=== PATIENT | female | born 1940 | race Caucasian/White ===

== ENCOUNTER 2016-07-21 16:23 | Inpatient (IN) | payer MEDICARE, OTHER ==
[~2016-07-21] VITALS: Ht 167.6 cm; Wt 106.3 kg
[2016-07-21] MEDS: Vancomycin Dose per Pharmacist XX SCH (07:21)
[~2016-07-21 16:23] MED LIST: ALBU90AE IH; AMLO10TA3 PO; ASPI325T32 PO; ATEN50TA PO; CYAN50008 PO; DONE10TA42 PO; FLUT250D2 IH; Ferrous Gluconate PO; GABA-502 PO; HYDR50TA3 PO; LAMO100T PO; LEVO100T6 PO; MV-M1CAP15 PO; OMEP40CA36 PO; ONDA-54 PO; OXYB5TAB10 PO; OXYC5TAB72 PO; VENL150C98 PO
[2016-07-21 16:28] VITALS: BP 127/74; PULSE 92; RESP 24; O2SAT 94
[2016-07-21] MEDS ORDERED: 0.9% Sodium Chloride 1,000 ML IV ONE (16:35)
--- NOTE | 2016-07-21 16:48 | ED.REPORT ---
HPI-Fever Date of Service Jul 21, 2016 ED Provider: Ling Jimenez MD This is a 75 year old female with a history of uterine cancer s/p hysterectomy and oophorectomy presenting to the emergency department complaining of general malaise that began 2 weeks ago. Associated symptoms include malaise, fever, shortness of breath, wheezing, nausea, non-productive cough, and diarrhea. Diarrhea is now resolved after taking Imodium. Denies vomiting, chest pain, lower extremity swelling, abdominal pain, dysuria, hematuria, or recent antibiotics. Oncologist: Dr. Arzate, pt visits the infusion center daily. Nursing Notes Stated Complaint: COUGH, FATIGUE,FEVER Chief Complaint: General Complaint Nursing Notes Reviewed: Yes Allergies: Coded Allergies: Quinolones (Verified Allergy, Mild, 07/21/16) lisinopril (Verified Allergy, Unknown, 07/21/16) morphine (Verified Allergy, Unknown, 07/21/16) Scheduled Amlodipine (Amlodipine) 10 Mg Tablet 10 MG PO DAILY Aspirin (Aspirin) 325 Mg Tablet 325 MG PO DAILY Atenolol (Atenolol) 50 Mg Tablet 50 MG PO DAILY Calcium Carbonate/Vitamin D3 (Calcium + Vitamin D Tablet) 1 Each Tablet 1 EACH PO DAILY Cholecalciferol (Vitamin D3) (Vitamin D3) 2,000 Unit Capsule 2,000 UNIT PO DAILY Cyanocobalamin (Vitamin B-12) (Vitamin B12) 5,000 Mcg Tab.rapdis 5,000 MCG PO DAILY Donepezil (Donepezil) 10 Mg Tablet 10 MG PO HS Ferrous Gluconate (Ferrous Gluconate) 324 Mg Tablet 162 MG PO BID Gabapentin (Gabapentin) 300 Mg Capsule 300 MG PO BID Hydrochlorothiazide (Hydrochlorothiazide) 25 Mg Tablet 25 MG PO DAILY Lamotrigine (Lamictal) 100 Mg Tablet 200 MG PO DAILY Levothyroxine (Levothyroxine) 100 Mcg Tablet 100 MCG PO DAILY Mv-Mn/FA/Vit K/Lycop/Lut/Coq10 (Daily Multivitamin Capsule) 200-100MCG Capsule 1 EACH PO DAILY Omeprazole (Omeprazole) 20 Mg Capsule.dr 40 MG PO DAILY Oxybutynin Chloride (Oxybutynin Chloride) 5 Mg Tablet 5 MG PO BID Venlafaxine ER (Venlafaxine ER) 150 Mg Cap.er.24h 300 MG PO DAILY Scheduled PRN Acetaminophen (Acetaminophen) 325 Mg Capsule 325 MG PO Q4H PRN PRN For Pain Albuterol Neb Soln (Albuterol Neb Soln) 2.5 Mg/3 Ml Vial.neb 2.5 MG INHALATION Q4H PRN PRN asthma Fluticasone Propionate (Flovent Diskus) 250 Mcg Disk.w.dev 2 PUFF IH BID PRN PRN For Shortness of Breath General Time Seen by MD: 16:45 Chief Complaint Fever currently Hx Obtained From: Patient Arrived By: Walk-in Onset Occurred: More than a week ago... (2 weeks) Symptom Duration: Since onset Severity: Current: No pain currently Pertinent Negative: Pt denies other symptoms Recent Healthcare: Recent doctor visit Similar Sx Previous: No Past Medical History Past Medical History Notes: oncologist: Dr. Arzate Past Medical History Uterine cancer Past Surgical History Oophorectomy Reports: Hysterectomy Smoking History Never Smoker Ambulatory Status Independent Review of Systems Constitutional: Reports: Chills, Fever, Malaise Respiratory: Reports: Non-productive cough, Shortness of breath GI: Reports: Nausea, Denies: Abdominal pain, Diarrhea, Vomiting Female: Denies: Dysuria, Hematuria Neurologic: Denies: Headache Complete sys rev & neg: except as marked. Physical Exam Initial Vital Signs Vital Signs (First) Date Time Temp Pulse Resp B/P Pulse Ox O2 Delivery O2 Flow Rate FiO2 07/21/16 16:28 35.4 92 24 127/74 94 Room Air Initial VS: Reviewed Head / Eyes: Atraumatic, Normocephalic, PERRL ENT: Mucous membranes moist, Conjunctiva normal, No scleral icterus Abdomen / GI: Soft, Non-tender, No guarding, No rebound, No distention Extremities: Vascular intact, Neuro intact, No swelling, No tenderness Psychiatric: Mood/affect normal, Behavior normal, Normal thought content General/Constitutional: Awake, Alert Neck: Supple, No meningismus, Full range of motion, No adenopathy, No swelling , Non-tender, No masses Respiratory / Chest: Breath sounds NL, Breath sounds = bilat, No respiratory distress, No rales, No rhonchi, No wheezing, No retractions, No stridor Cardiovascular: Heart rate NL, Regular rhythm, Heart sounds NL, No murmurs, Peripheral circulation NL Skin: Color NL, No rash, Warm, Dry, Turgor NL, No swelling Neurologic: Oriented X3, Speech NL, No motor deficits, No sensory deficits Interpretation & Diagnostics Interpretation & Diagnostics: CHEST X-RAY IMPRESSION: 1. Findings consistent with medial right lower lobe pneumonia. 2. Moderate cardiomegaly as before. Dictated by: Raad Valdez M.D. on 07/21/2016 at 17:24 Approved by: Raad Valdez M.D. on 07/21/2016 at 17:[address] IMPRESSION: 1. No evidence for central pulmonary embolism. 2. Findings consistent with evolving bibasilar bronchopneumonia. 3. Large retrocardiac hiatal hernia. 4. Mild cardiomegaly. Dictated by: Raad Valdez M.D. on 07/21/2016 at 17:58 Approved by: Raad Valdez M.D. on 07/21/2016 at 18:07 Lab Results Interpretation Result Diagram: 07/21/16 1650 07/21/16 1650 Test 07/21/16 16:50 07/21/16 18:18 White Blood Count 4.3th/mm3 (3.8-10.1) Red Blood Count 3.42mil/mm3 (3.90-5.20) Hemoglobin 9.9g/dL (12.0-15.6) Hematocrit 29.3% (35.0-46.0) Mean Corpuscular Volume 85.7fL (81-100) Mean Corpuscular Hemoglobin 28.9pg (27.0-35.0) Mean Corpuscular Hemoglobin Concent 33.8% (32.0-37.0) Red Cell Distribution Width 16.7% (12.3-15.4) Platelet Count 184bil/L (150-400) Neutrophils (%) (Auto) 67.6% (40-74) Lymphocytes (%) (Auto) 12.9% (14-46) Monocytes (%) (Auto) 17.4% (4-12) Eosinophils (%) (Auto) 0% (0-5) Basophils (%) (Auto) 0.2% (0-3) Sodium Level 131mEq/L (134-144) Potassium Level 2.8mEq/L (3.5-5.2) Chloride Level 88mEq/L (97-108) Carbon Dioxide Level 22mmol/L (18-29) Blood Urea Nitrogen 19mg/dL (8-27) Creatinine 0.83mg/dL (0.57-1.00) Estimat Glomerular Filtration Rate 97mL/min (>59) Glucose Level 91mg/dL (60-99) Lactic Acid Level 1.6mmol/L (0.4-2.0) Calcium Level 8.3mg/dL (8.5-10.1) Magnesium Level 1.0mg/dL (1.6-2.6) Total Bilirubin 1.0mg/dL (0.0-1.2) Aspartate Amino Transf (AST/SGOT) 20U/L (0-50) Alanine Aminotransferase (ALT/SGPT) 21U/L (0-32) Alkaline Phosphatase 212U/L (25-165) Troponin T < 0.010ug/L (0.0-0.011) Total Protein 6.9g/dL (6.4-8.4) Albumin 3.7g/dL (3.4-5.0) Urine Color Yellow (YELLOW) Urine Appearance Hazy (CLEAR,HAZY) Urine pH 5.5 (5.0-8.0) Urine Specific [place] 1.010 (1.003-1.035) Urine Protein 30mg/dL (NEG,TRACE) Urine Glucose (UA) Negativemg/dL (NEGATIVE) Urine Ketones Negativemg/dL (NEGATIVE) Urine Occult Blood Trace (NEGATIVE) Urine Nitrite Negative (NEGATIVE) Urine Bilirubin Negative (NEGATIVE) Urine Urobilinogen Normalmg/dL (NORMAL) Urine Leukocyte Esterase Small (NEGATIVE) Urine RBC 0-2/hpf (0-2) Urine WBC 0-5/hpf (0-5) Urine Epithelial Cells Few/hpf (NONE-MOD) Urine Crystals None seen (NONE SEEN) Urine Bacteria Few/hpf (NONE-FEW) Urine Hyaline Casts None/lpf (NONE) Urine Granular Casts None seen (NONE SEEN) Urine Waxy Casts None seen (NONE SEEN) Urine Red Blood Cell Casts None seen (NONE SEEN) Urine White Blood Cell Casts None seen (NONE SEEN) Urine Mucus None seen (None Seen) Urine Trichomonas None seen (NONE SEEN) Urine Yeast None (NONE SEEN) Urinalysis Comment None Urine Culture Reflexed Indicated Re-Eval/Medical Decision Med Decision/Clinical Course 75-year-old female with uterine cancer, actively receiving chemotherapy, sent here from [facility] for fever. Differential diagnosis includes but is not limited to pneumonia versus bacteremia versus urinary tract infection versus PE. Patient's PE study is negative for PE, however, does show bibasilar pneumonia. She is not neutropenic at this time. I have given her vancomycin and Zosyn for her pneumonia. Of note, she is profoundly hypomagnesemic and hypokalemic. Both magnesium and potassium were repleted in the emergency department. She is aware amenable to admission at this time. Re-Evaluation/Progress : Time of Eval: 18:44 Re-Evaluation/Progress Note: Discussed need for admission, all questions addressed. 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 I, Dr. Jimenez personally performed the history, physical exam and medical decision-making; I reviewed and confirmed the accuracy of the information in the transcribed note. Signed by: Chencho Solano. 07/21/2016, 23:00. Ling Jimenez MD Jul 21, 2016 16:48 CHENCHO SOLANO Jul 21, 2016 17:02
[2016-07-21 17:10] LABS: BASOPHILS % (AUTO) 0.2 % (0-3); EOSINOPHILS % (AUTO) 0 % (0-5)
[2016-07-21 17:14] LABS: MONOCYTES % (AUTO) 17.4 % (4-12); Mean Corpuscular Hemoglobin 28.9 pg (27.0-35.0); Mean Corpuscular Volume 85.7 fL (81-100); NEUTROPHILS % (AUTO) 67.6 % (40-74); Platelet Count 184 bil/L (150-400)
[2016-07-21] MEDS ORDERED: Ondansetron 2 mg/mL 2 mL Inj IVPUSH ONE ×2 (17:15→18:50)
--- NOTE | 2016-07-21 17:31 | DRSVH ---
PROCEDURE: X-RAY CHEST, TWO VIEWS ([id number]) INDICATIONS: 75 year-old female with fevers. TECHNIQUE: 2 views of the chest were acquired. COMPARISON: [facility], CR, XR CHEST 1VW (PORTABLE), 05/30/2016, 16:59. [facility], CR, CHEST 2VW, 04/11/2011, 12:17. FINDINGS: Surgical changes and devices: Left chest wall Port-A-Cath is again noted. Lungs and pleura: No pleural effusions or pneumothorax. Lungs are clear, except for medial right surjit ng base opacity with internal air bronchograms. Mediastinum: Mediastinal contours are normal. Moderate cardiomegaly is unchanged. Bones and chest wall: No suspicious bony abnormalities. Soft tissues appear unremarkable. IMPRESSION: 1. Findings consistent with medial right lower lobe pneumonia. 2. Moderate cardiomegaly as before. Dictated by: Raad Valdez M.D. on 07/21/2016 at 17:24 Approved by: Raad Valdez M.D. on 07/21/2016 at 17:25
[2016-07-21 17:41] LABS: TROPONIN T < 0.010 ug/L (0.0-0.011)
[2016-07-21] MEDS ORDERED: Magnesium Sulf 2 Gm/50mL Water 2 GM in IV Premix 1 EACH IV ONE (17:50)
[2016-07-21] MEDS ORDERED: Potassium Chloride 20 mEq/15 mL 15mL Oral Soln PO ONE (17:55)
--- NOTE | 2016-07-21 18:12 | DRSVH ---
PROCEDURE: CT ANGIO CHEST PULMONARY EMBOLISM ([id number]) INDICATIONS: 75 year-old female with hypoxia and dyspnea, and history of uterine cancer. TECHNIQUE: After the administration of intravenous contrast, 2 mm thick sections acquired from the pulmonary api franko to the posterior costophrenic angles. 3-dimensional maximum intensity projection (MIP) coronal a nd sagittal reformats were then acquired through the thorax. For radiation dose reduction, the follo wing was used: automated exposure control, adjustment of mA and/or kV according to patient size. COMPARISON: [facility], CR, XR CHEST 2VW, 07/21/2016, 17:19. [facility], CT, CT CHEST ABD PELVIS W CON, 04/15/2016, 9:27. FINDINGS: Image quality: Excellent. Pulmonary arteries: Pulmonary arteries are normal in size, and demonstrate no intraluminal filling d efects to suggest central pulmonary embolism. Lungs and pleura: There is incomplete inspiratory effort, with bronchovascular crowding. Previously n oted pulmonary nodules are therefore not as apparent on current study. Patchy airspace opacities invo lve the right lower and middle lobes, with internal air bronchograms. Smaller airspace opacities also involve the left lower lobe. No pleural effusions or pneumothorax. Central and peripheral airways are patent. Mediastinum: There is mild cardiomegaly, without pericardial effusion. No mediastinal or hilar adeno ari. Thoracic aorta is normal in caliber and enhancement. Esophagus is normal in caliber, with a large hiatal hernia. Bones and chest wall: Left chest wall Port-A-Cath is again noted. No suspicious bony lesions. Ribs and thoracic spine appear intact throughout. Thyroid gland is incompletely visualized. No axillary or supraclavicular adenopathy. Abdomen: Patient is status post cholecystectomy. Other visualized upper abdominal solid organs appea r normal in the early arterial phase of enhancement. IMPRESSION: 1. No evidence for central pulmonary embolism. 2. Findings consistent with evolving bibasilar bronchopneumonia. 3. Large retrocardiac hiatal hernia. 4. Mild cardiomegaly. Dictated by: Raad Valdez M.D. on 07/21/2016 at 17:58 Approved by: Raad Valdez M.D. on 07/21/2016 at 18:07
[2016-07-21 18:28] LABS: APPEARANCE,URINE HAZY (CLEAR,HAZY); COLOR,URINE YELLOW (YELLOW)
[2016-07-21 18:29] LABS: OCCULT BLOOD,URINE TRACE (NEGATIVE); PH,URINE 5.5 (5.0-8.0); UROBILINOGEN,URINE NORMAL (NORMAL)
[2016-07-21] MEDS ORDERED: Piperacillin-Tazo 3.375 Gm Inj 3.375 GM in Dextrose 5% Minibag Plus 50 ML IV ONE (18:35)
[2016-07-21] MEDS ORDERED: Vancomycin Inj 1,000 MG in IV Premix 1 EACH IV ONE (18:35)
[2016-07-21] MEDS ORDERED: Alum-Mag Hydrox-Simeth 30 mL Suspension PO PRN (19:25)
[2016-07-21] MEDS ORDERED: Ondansetron 2 mg/mL 2 mL Inj IVPUSH PRN (19:25)
[2016-07-21] MEDS ORDERED: Polyethylene Glycol (PEG) 17 Gm Powder PO PRN (19:25)
[2016-07-21] MEDS ORDERED: OMEP20CA11 PO (19:25)
[2016-07-21 19:34] VITALS: BP 119/56; PULSE 91; RESP 20; O2SAT 91
[2016-07-21 19:54] VITALS: BP 119/60; PULSE 84; RESP 26; O2SAT 90
[2016-07-21] MEDS ORDERED: CALC-140 PO (20:13)
[2016-07-21] MEDS ORDERED: HYDR25TA4 PO (20:13)
[2016-07-21] MEDS ORDERED: CHOL200047 PO (20:13)
[2016-07-21] MEDS ORDERED: FERR325T20 PO (20:15)
[2016-07-21] MEDS ORDERED: ALBU2.5V4 INHALATION (20:16)
--- NOTE | 2016-07-21 20:17 | PCM.CONPHA ---
Subjective Requesting Provider: Luis Dennis MD Reason for Pharmacy Consult: Vancomycin Dosing Assessment/Plan Assessment/Plan Pharmacy to dose vancomycin for an oncology patient with pneumonia. Goal trough 15-20. Last chemo 07/13/16. Ht 66 inches Wt 104K Serum Cr=0.83 Creatinine clearance 97ml/min ([place]) WBC=4.3 Vancomycin 1 Gram was ordered by the ER doctor and administered in the ER. I ordered another Vancomycin 500mg for a total of 1500mg load (15mg/kg). Vancomycin 1 Gram IV q 12 hours should produce a trough of about 19, at the upper end of the goal range ([facility] A trough has been ordered for 0730 07/23/16, prior to the 4th total dose. A pharmacist will evaluate this and adjust dosing as necessary. Barb Jennings [facility] Jul 21, 2016 20:17
[2016-07-21] MEDS ORDERED: ACET325C PO (20:18)
--- NOTE | 2016-07-21 20:50 | PCM.HPMED ---
Subjective Date of Service Jul 21, 2016 Primary Provider: Admitting Physician: Luis Dennis MD Primary Care Physician: Charlene Kelly Attending Physician: Luis Dennis MD Admit Status: From the Emergency Department, Full Admit Chief Complaint: Cough and dyspnea/one week Fever/one day History of Present Illness: Fabiola is a pleasant 75-year-old lady with past medical history of hypertension, asthma, hypothyroidism, osteoporosis, epilepsy, overactive bladder , restless leg syndrome, recent diagnosis of stage IA adenocarcinoma of uterus, underwent RONDA/SBO in Apr 2016, currently on weekly chemotherapy carboplatin/ paclitaxel, last chemotherapy and Neupogen Jul 19. She has been coughing for the last 1 week which progressively worsened in the last few days. She also has progressively worsening dyspnea for the last 3-4 days. She also has generalized weakness and malaise. She noted she has fever today . Denies sick contact. She has asthma, she occasionally takes albuterol inhalers as needed. No history of hospitalization for exacerbation. She also had sudden onset frequent watery diarrhea yesterday. Presumed to be due to Neupogen and was instructed by her physician to take Imodium and diarrhea resolved yesterday. In ED initial temp 35.4, repeat temp 38.8 HR 96, BP 127/74, RR 22, WBC 4.3, neutrophils 67.6%, sodium 131, potassium 2.8, magnesium 1.0, lactate 1.6 CTA negative for PE, bibasilar pneumonia,CXR medial right lower lobe pneumonia. Blood culture sent Potassium and magnesium repleted, Zosyn and vancomycin started. Hospitalist service requested for admission for pneumonia Review of Systems: A comprehensive review of systems performance, pertinent positives and negatives included in history of present illness Allergies Coded Allergies: Quinolones (Verified Allergy, Mild, 07/21/16) lisinopril (Verified Allergy, Unknown, 07/21/16) morphine (Verified Allergy, Unknown, 07/21/16) Home Medications Lamictal 200 mg in the morning. Atenolol 50 mg daily. Levothyroxine 100 mcg daily. HCTZ 50 mg daily. Amlodipine 10 mg daily. Omeprazole 40 mg daily. Oxybutynin once daily. Donepezil 10 mg at night. Venlafaxine ER 150 mg two tablets in the morning. Flovent 2 puffs p.r.n. Albuterol p.r.n. rarely uses it Gabapentin 300 mg once daily. Aspirin 325 mg once daily. Calcium supplement. B12 supplement. Iron supplement. PMH 1. Hypertension. 2. Chronic asthma. Stable 3. Osteoporosis. 4. Major depression. 5. Hypothyroidism. 6. Epilepsy. She gets silent seizures on average once a month or once every other month. She is on Lamictal for that. 7. Overactive bladder. 8. Restless leg syndrome. Surgical History 1. RONDA/BSO April 2016 2. Lumbar spine surgery in 2013. 3. Replacement of right hip and bilateral knees. 4. Cholecystectomy. 5. Surgery for Right ankle fracture 6 right wrist fracture surgery Family History Her father of emphysema Her mother is alive and is 97 years old Social History Hx Alcohol Use: No Hx Substance Use: No Smoking Status: Never Smoker (second hand smoke exposure from her father ) Exam Vital Signs Vital Sign - Last Date Time Temp Pulse Resp B/P Pulse Ox O2 Delivery O2 Flow Rate FiO2 07/21/16 19:54 38.8 84 26 119/60 90 Room Air Exam Gen. In mild respiratory distress HEENT: Head is normocephalic atraumatic, Pupils equal and reactive, extraocular movements intact, Lungs scattered wheeze bilaterally on lower chest, port in place Heart regular rate and rhythm without murmurs gallops or rubs Abdomen soft nontender without hepatosplenomegaly Extremities pulses are present dorsalis pedis posterior tibialis and radial. Skin is warm and dry there are no rashes, Psych alert and oriented to person place and time Neuro cranial nerves II through XII are grossly intact Lymph: There is no lymphadenopathy appreciated in the cervical supra infraclavicular regions : no oliveira Lab and Diagnostics Result Diagram: 07/21/16 1650 07/21/16 1650 X-Rays, CTs and MRIs CTA IMPRESSION: 1. No evidence for central pulmonary embolism. 2. Findings consistent with evolving bibasilar bronchopneumonia. 3. Large retrocardiac hiatal hernia. 4. Mild cardiomegaly. Dictated by: Raad Valdez M.D. on 07/21/2016 at 17:58 CXR IMPRESSION: 1. Findings consistent with medial right lower lobe pneumonia. 2. Moderate cardiomegaly as before. Dictated by: Raad Valdez M.D. on 07/21/2016 at 17:24 Assessment & Plan Fabiola is a pleasant 75-year-old lady with past medical history of hypertension, asthma, hypothyroidism, osteoporosis, epilepsy, overactive bladder , restless leg syndrome, recent diagnosis of stage IA adenocarcinoma of uterus came to emergency room due to cough and dyspnea of 1 week and fever of one day. # Sepsis due to Health care associated pneumonia,poa, acute -RR 26,HR 98,temp 38.8,immunocompromised, recieved neupogen , cbc unreliable -NS given in ED,continue NS at 100ml/h -Influenza screen negative -Blood culture sent,LA 1.6 -No neutropenia, received Neupogen recently -Zosyn and vancomycin started in ED, will continue with that. will add azithromycin for atypical coverage -Oxygen as needed -Duoneb as needed -CTA negative for PE, consistent with pneumonia #Hypomagnesemia and hypokalemia, acute, poa -Probably due to chemotherapy -Magnesium 1.0, potassium 2.8 -Repleted in ED - will recheck later #Hypertension, chronic - will resume atenolol 50 mg by mouth daily, hctz 50 mg by mouth daily, amlodipine 10 mg by mouth daily if BP is high #History of asthma, chronic -duoneb q6h #Hypothyroidism, chronic -Continue Synthroid 100 mcg daily #History of seizure disorder, chronic -Continue Lamictal #Overactive bladder, chronic - Continue oxybutynin #History of depression, chronic - Continue venlafaxine #Recent diagnosis of uterine cancer on chemotherapy, chronic -May need to notify oncologist if she stays longer than few days #ppx -lovenox and ppi Full code ,verified with patient and at the bedside, names her as POA,tel [phone] Patient admitted under inpatient status with expected length of stay > 2 midnights for severity of present symptoms, complexities of treatment plan and risk for adverse events Time spent 60 minutes copies to: Charlene Kelly; Heydi Arzate MD, Melaku MD Jul 21, 2016 20:50
[2016-07-21] MEDS ORDERED: DONEPEZIL 10 MG PO SCH (21:00)
[2016-07-21] MEDS: 0.9% Sodium Chloride 1,000 ML IV SCH (21:38)
[2016-07-21] MEDS: Azithromycin Inj 500 MG in Dextrose 5% w/Vial Mate 250 ML IV SCH (21:39)
[2016-07-21] MEDS: Albuterol-Ipratropium 3 mL Inhalation Solution NEB SCH (22:20)
[2016-07-21 22:29] VITALS: PULSE 86; RESP 18; O2SAT 92
[2016-07-21 23:16] LABS: Magnesium 1.4 mg/dL (1.6-2.6); Phosphorus 2.3 mg/dL (2.5-4.9)
[2016-07-22] VITALS (11 sets, daily range): BP systolic 118–130; BP diastolic 67–85; PULSE 62–81; RESP 20–24; O2SAT 90–98
[2016-07-22] MEDS ORDERED: Piperacillin-Tazo 3.375 Gm Inj 3.375 GM in Dextrose 5% Minibag Plus 50 ML IV SCH (00:30)
--- NOTE | 2016-07-22 03:54 | NUR ---
Admit To room 3017 at 1945, with pneumonia and hypokalemia. Pain 2/10. VS stable except febrile at 38.8C. Oriented to room and plan of care. Updated white board. Bed alarm and non-skid socks on for safety.
--- NOTE | 2016-07-22 04:01 | NUR ---
Med rec Reviewed medications with admit nurse. Updated pharmacy.
--- NOTE | 2016-07-22 04:02 | NUR ---
o2 sats At midnight o2 sats at 89-90%. Placed on 1 L of O2.
[2016-07-22] MEDS: Albuterol-Ipratropium 3 mL Inhalation Solution NEB SCH ×4 (04:32→20:58)
[2016-07-22 05:40] LABS: BASOPHILS % (AUTO) 0.2 % (0-3); EOSINOPHILS % (AUTO) 0 % (0-5); MONOCYTES % (AUTO) 16.5 % (4-12); Mean Corpuscular Hemoglobin 29.1 pg (27.0-35.0); Mean Corpuscular Volume 86.4 fL (81-100); NEUTROPHILS % (AUTO) 59.9 % (40-74); Platelet Count 187 bil/L (150-400)
[2016-07-22 06:06] LABS: Magnesium 1.6 mg/dL (1.6-2.6)
[2016-07-22] MEDS: Pantoprazole 40 mg ER24 Tablet PO SCH (06:13)
[2016-07-22] MEDS ORDERED: KCl 40 mEq/D5W 500 mL 40 MEQ in IV Premix 500 EACH IV ONE (07:50)
[2016-07-22] MEDS ORDERED: Magnesium Sulf 2 Gm/50mL Water 2 GM in IV Premix 1 EACH IV ONE (07:50)
[2016-07-22] MEDS: Azithromycin Inj 500 MG in Dextrose 5% w/Vial Mate 250 ML IV SCH (08:08)
[2016-07-22] MEDS: Venlafaxine XR 75 mg ER24 Capsule PO SCH (08:12)
[2016-07-22] MEDS: lamoTRIgine 100 mg Tablet PO SCH (08:14)
[2016-07-22] MEDS: Vancomycin Dose per Pharmacist XX SCH (08:15)
[2016-07-22] MEDS ORDERED: [UNRECOGNIZED DRUG - OTHER] PO SCH (08:30)
[2016-07-22] MEDS ORDERED: Vancomycin 1 Gm/200 mL NS Premix IV SCH (08:30)
[2016-07-22] MEDS ORDERED: Non-Formulary Medication (Amlodipine 10 MG) PO SCH (08:30)
[2016-07-22] MEDS ORDERED: Vitamins C,E, Omega-3, Mineral Tablet PO SCH (08:30)
[2016-07-22] MEDS ORDERED: VENLAFAXINE 300 MG PO SCH (08:30)
[2016-07-22] MEDS: 0.9% Sodium Chloride 250 ML IV SCH (09:47)
[2016-07-22] MEDS ORDERED: HepLOK Flush 100 unit/mL 5 mL Inj IVFLUSH PRN (09:50)
[2016-07-22] MEDS ORDERED: Sodium Chloride LOK Flush 10 mL Syringe IVFLUSH PRN ×2 (09:50)
[2016-07-22] MEDS: 0.9% Sodium Chloride 1,000 ML IV SCH ×2 (09:53→20:05)
--- NOTE | 2016-07-22 11:20 | NUR ---
Social Work: Initial Assessment D: Per EMR review, pt is a 75 year old female admitted for pneumonia, hypokalemia. Pt is Medicare with [employer]. PCP Is ARNP. MARSHA Schmitt and DPOA is Matteo Sawant, Spouse, . Advanced directives and DPOA ppw on chart from 2003- HYDROBLASTER confirmed with pt that this is still current and placed copy on chart. Readmit score is moderate, 4/8. HYDROBLASTER met with pt and family at bedside. Sw role explained and contact information provided; see initial assessment. Pt lives at home in [place] with her spouse. Pt is currently undergoing chemotherapy and oncologist is Dr. Arzate. Pt states that she is I at baseline and owns a walker which she does not use regularly. Pt states she has been "weak due to the chemo." Pt states that she has a history with [facility] but is not current with them. She would be receptive to this service if her doctor felt she needed it. HH Choice list Provided- preference is for [facility]. Pt has never had SNF placement. Pt has been SBA during admission but only getting up to [facility]. F2F completed and in folder for MD signature if warranted. Referral not provided at this time. A: Pt who previously was I with ambulation but endorsing weakness due to chemotherapy. P: Evolving; HYDROBLASTER to continue to follow and coordinate safe dcp with MD. HYDROBLASTER to r/o HH and provide referral to [facility] if MD orders. RICKY Baldwin Addendum: 07/22/16 at 1133 by PEDRO LUIS JACINTO SS Amended: Links added.
[2016-07-22] MEDS ORDERED: cefTRIAXone 2,000 mg Inj IV SCH (12:00)
[2016-07-22] MEDS: D5W IV SCH ×2 (12:39)
[2016-07-22] MEDS: CEFTRIAXONE 2000 MG/50 ML IV SCH ×2 (12:39)
[2016-07-22] MEDS: Albuterol 2.5 mg/3 mL Inhalation Solution NEB PRN (14:18)
--- NOTE | 2016-07-22 15:10 | PCM.PNMED ---
Subjective Date of Service Jul 22, 2016 Subjective 75-year-old lady with past medical history of hypertension, asthma, hypothyroidism, osteoporosis, epilepsy, overactive bladder, restless leg syndrome, recent diagnosis of stage IA adenocarcinoma of uterus, underwent RONDA/ SBO in Apr 2016, currently on weekly chemotherapy carboplatin/paclitaxel, last chemotherapy and Neupogen Jul 19. She has been coughing for the last 1 week which progressively worsened in the last few days. She also has progressively worsening dyspnea for the last 3-4 days. She also has generalized weakness and malaise. No fever this morning, Patient reports feeling much better than yesterday. She is still having some shortness of breath and diarrhea but generally feels like things have improved. She has a cough that has also improved. She finds the nebulizer treatments helpful. Exam Vital Signs Vital Sign - Last Date Time Temp Pulse Resp B/P Pulse Ox O2 Delivery O2 Flow Rate FiO2 07/22/16 05:47 37.0 70 24 120/67 95 Nasal Cannula 2.00 Intake and Output 07/21/16 07/21/16 07/22/16 Cumulative From/Thru 15:00 23:00 07:00 07/21/16 16:28 - 07/22/16 02:47 Intake Total 1000 ml 1000 ml Balance 1000 ml 1000 ml IV Total 1000 ml 1000 ml Exam General: No acute distress, well-developed, well-nourished, appropriately interactive HEENT: Normocephalic, atraumatic. External ears without defect. Pupils equal, round, and reactive to light and accommodation. Anicteric sclerae, moist conjunctivae, and no lid lag. Oropharynx free of erythema with moist mucosa. Neck: Supple with full range of motion. No jugular venous distension. No lymphadenopathy or thyromegaly. Cardiovascular: Regular rate and rhythm with no murmurs, rubs, or gallops appreciated Pulmonary: Scattered crackles and wheezes bilaterally. Normal respiratory effort with no use of accessory muscles. Abdomen: Bowel tones present. Soft, nontender, nondistended, obese with hyperpigmented well healed surgical scars. No hepatosplenomegaly or masses appreciated. Extremities: No clubbing, cyanosis, edema, or lymphadenopathy appreciated. Skin: Normal temperature, turgor, and texture; no rash, ulcers, or subcutaneous nodules appreciated. Neurological: Cranial nerves grossly intact. Normal muscle strength, tone, and bulk. No known gait impairment. Psychiatric: Normal mood and affect. Alert and oriented to person, place, and time. Lab and Diagnostics Result Diagram: 07/22/1630 07/22/16529 X-Rays, CTs and MRIs CTA IMPRESSION: 1. No evidence for central pulmonary embolism. 2. Findings consistent with evolving bibasilar bronchopneumonia. 3. Large retrocardiac hiatal hernia. 4. Mild cardiomegaly. Dictated by: Raad Valdez M.D. on 07/21/2016 at 17:58 CXR IMPRESSION: 1. Findings consistent with medial right lower lobe pneumonia. 2. Moderate cardiomegaly as before. Dictated by: Raad Valdez M.D. on 07/21/2016 at 17:24 Assessment & Plan Fabiola is a pleasant 75-year-old lady with past medical history of hypertension, asthma, hypothyroidism, osteoporosis, epilepsy, overactive bladder , restless leg syndrome, recent diagnosis of stage IA adenocarcinoma of uterus came to emergency room due to cough and dyspnea of 1 week and fever of one day. 1. Sepsis due to Health care associated pneumonia,poa, acute -RR 26,HR 98,temp 38.8 on admission immunocompromised, received neupogen , cbc unreliable -NS given in ED,continue NS at 100ml/h -Influenza screen negative -Blood culture positive for gram-positive cocci possibly strep -LA 1.6 -No neutropenia, received Neupogen recently -Zosyn and vancomycin, and azithromycin discontinued, ceftriaxone day 1 to cover gram-positive cocci 2. Probable Strep pneumoniae pneumonia, present on admission, active -Rocephin IV 2 g daily -Oxygen as needed -Duoneb as needed -Benzonatate for cough suppression -CTA negative for PE, consistent with pneumonia 3. Hypomagnesemia and hypokalemia, acute, poa -Probably due to chemotherapy -Magnesium 1.0, potassium 2.8 upon arrival -Repleted in ED and additionally today when morning labs showed potassium 3.0 and Mg 1.6 -will recheck pm and again in AM 3. Hypertension, chronic -will resume atenolol 50 mg by mouth daily, hctz 50 mg by mouth daily, amlodipine 10 mg by mouth daily if BP is high 4. History of asthma, chronic -duoneb q6h 5. Hypothyroidism, chronic -Continue Synthroid 100 mcg daily 6. History of seizure disorder, chronic -Continue Lamictal 7. Overactive bladder, chronic -Continue oxybutynin 8. History of depression, chronic -Continue venlafaxine 9. Recent diagnosis of uterine cancer on chemotherapy, chronic -Dr. Arzate of oncology consulted. -S/P total hysterectomy with salpingo-oophorectomy bilaterally in April 2016 -Current chemotherapy includes weekly carboplatin and paclitaxel -On Neupogen most recently July 19 Prophylaxis: -Lovenox and PPI Full code, names her as POA,tel [phone] Patient admitted under inpatient status with expected length of stay > 2 midnights for severity of present symptoms, complexities of treatment plan and risk for adverse events Pain Evaluation: Adequate Pain Control GI Prophylaxis: Proton Pump Inhibitor VTE Prophylaxis: Sub-Q Enoxaparin VTE Mechanical Devices: Intermittant Pneumatic CD Resuscitation Status: CPR: Attempt Resuscitation Attending Statement The patient was seen and examined together with Dr. Sanford on 07/22/2016 and I agree with the history, exam and plan as outlined in the note above. Mary Sanford DO Jul 22, 2016 07:24 Edgardo Collado MD Jul 23, 2016 14:08 midnights for severity of present symptoms, complexities of treatment plan and risk for adverse events Pain Evaluation: Adequate Pain Control GI Prophylaxis: Proton Pump Inhibitor VTE Prophylaxis: Sub-Q Enoxaparin VTE Mechanical Devices: Intermittant Pneumatic CD Resuscitation Status: CPR: Attempt Resuscitation Mary Sanford DO Jul 22, 2016 07:24
[2016-07-22 15:34] LABS: Magnesium 2.3 mg/dL (1.6-2.6)
[2016-07-22] MEDS ORDERED: FERROUS GLUCONATE PO SCH (17:30)
--- NOTE | 2016-07-22 18:12 | NUR ---
Daily update Patient alert and oriented X3. Patient continues to be a 1 person assist to BSC. Patient has crackles heard in lower bilateral lungs. Patient did become SOB with exertion and rest. Remains on 1L supplemental O2 via nasal cannula. Patient received IV magnesium and IV potassium supplements today. Patient did has slight headache of 3/10 today, but declined any medication for pain.
--- NOTE | 2016-07-22 18:24 | CONS ---
[address] [address] CONSULTATION REPORT PATIENT: LOUISA DUNNE : 1940 MR#: [id number] ADMIT: 07/21/2016 JOB ID: [id number] DATE OF SERVICE: 07/22/2016 INFECTIOUS DISEASE CONSULTATION: I thank Dr. Lore Sparks for this timely consultation. REASON FOR CONSULTATION: Bacteremic pneumococcal pneumonia. HISTORY OF PRESENT ILLNESS: The patient is a 75-year-old woman with multiple medical problems including asthma and seizure disorder. In the fall of 2015 she was diagnosed with a uterine malignancy which led her to get a TAHBSO and get started on chemo. She has been receiving [place] and Taxol based chemotherapy on a regular basis and was doing relatively well except for some periodic neutropenia and GI complaints. In any event, about a week ago she developed a URI type symptomatology with some runny nose and sneezing and perhaps some minimal pharyngeal symptoms she then got much worse over about three or four days, leading up to her admission yesterday with these worsening symptoms including shortness of breath, progressive nonproductive cough, fever, chills and malaise. In addition, the patient developed acute diarrhea. She was instructed to take some Imodium and this seemed to improve the diarrhea but her fever and other symptoms continued unabated and she started to develop some bilateral pleuritic chest pain with coughing as well. Yesterday she was seen on the outpatient basis by her bridge repairer/oncologist who wisely referred her over for evaluation and admission for what turns out to have been a pneumococcal bacteremic pneumonia. ID consultation is requested at this time regarding management. PAST MEDICAL HISTORY: 1. Hypertension. 2. Asthma. 3. Depression. 4. Seizure disorder. 5. Uterine adenocarcinoma diagnosed March 2016 status post surgical removal and initiation of chemotherapy with radiation planned subsequently. SOCIAL HISTORY: The patient has never been a smoker nor a drinker. She lives with her family in the local area. FAMILY HISTORY: Notable for her father who had tuberculosis as a young man before the patient was born. She reports that he was never completely well after that, though, and had chronic pulmonary disease the rest of his life before dying of emphysema. He was a smoker and she suffered some secondhand smoke. Her mother is alive at age 97. REVIEW OF SYSTEMS: At this point the patient notes that she has had a severe headache for about three days which seemed to come along with the other symptoms. She has no visual complaint. No sore throat. No trouble swallowing. She has no stiff neck. She has no problems with her left upper chest port. She has a frequent nonproductive cough and some shortness of breath, both of which are unusual for her. She has some mild bilateral pleuritic chest pain with deep inspiration. No substernal chest pain. She has had some nausea and it is unclear if that is due to her most recent chemo or this infection, but she has not had vomiting. She did have the diarrhea a few days ago which seemed to resolve with Imodium. No dysuria, urgency, or frequency. No swelling of the joints. No myalgias or arthralgias, though she does feel just diffusely weak. No focal neurologic complaint. The rest of the review of systems is negative. PHYSICAL EXAMINATION: Reveals an afebrile woman temperature 36.4, pulse 81, respiratory rate 22, blood pressure 128/79, she is saturating well on 2 L and in no acute distress. The patient is perhaps very slightly confused. She is clearly oriented x3, but when asked certain direct questions she will give a completely inappropriate answer, which will cause her assembled family in the room to laugh, and she comes back to the right answer, so I think this is a very low level of confusion or it could be a manifestation of what is known as colloquially as "chemo brain." The head is without trauma. Sinuses nontender. Eyes with pale conjunctivae. Oral cavity: No thrush or pharyngitis. The neck is supple. There is a port in the left upper chest which is benign. The lungs are notable for focal rales at the right base, and these are quite pronounced. The left lung sounds clear to me. I do not hear any wheezing. Cardiac tones regular rate and rhythm, without significant murmur. The abdomen is slightly obese, soft and nontender. There is no Cruz catheter and the patient has no suprapubic tenderness. Her joints are without synovitis. There is no skin rash per se but there are some ecchymoses scattered over the both the upper and lower extremities. The patient is neurologically intact, with good strength. Appears to have normal sensation. LABORATORIES: Include a white count 4100 today; that includes 60% polys, so of course she is nowhere near neutropenic. Platelet count 187. Creatinine 0.65. LFTs are normal. Alk phos 196. Albumin 3.3. Urinalysis without pyuria. Urine Legionella antigen is negative but the urine pneumococcal antigen is positive. One set of blood cultures is already growing an organism which the micro staff have confirmed to me looks a lot like pneumococcus, so it would appear we have bacteremia with pneumococcus. The C. diff PCR was negative and a nasopharyngeal multiplex PCR is negative. A MRSA screen is pending. IMAGING: Includes a chest CT which shows patchy airspace opacities, mainly in the right lung. There are smaller little infiltrates in the left lung. Abdomen is negative, except for a hiatal hernia and status post cholecystectomy. IMPRESSION: This woman is in the midst of receiving several months of chemotherapy for a recently diagnosed uterine adenocarcinoma. She was doing reasonably well with her chemo when she developed what sounds to be a viral upper respiratory tract infection which was followed by fevers, chills, sweats, increasing cough, and shortness of breath, all of which is very consistent with the right-sided infiltrate we now see on chest x-ray. This is definitively pneumococcal pneumonia based on urine antigen and what appears to be a positive blood culture. It will be a day or two before we have susceptibilities, but I think it is reasonable to keep the patient in the hospital for a couple of days observation anyway until we have back susceptibilities. Also of note is the family history. Her dad had TB, and may have still had it when the patient was alive and around him, so I think it is important we check a QuantiFERON Gold. RECOMMENDATIONS: 1. I would add back azithromycin to the ceftriaxone. Considerable evidence in the literature now supports the proposition that using a macrolide plus a beta-lactam for bacteremic pneumococcal pneumonia can be quite helpful. I would continue this only for a couple more days, however, as the literature would suggest a fairly short course of a macrolide is all that is needed. 2. I would continue with the ceftriaxone at least for the next couple days until we have the susceptibilities on the pneumococcus. If this pneumococcus turns out to be exquisitely sensitive to penicillin, the patient could be discharged on amoxicillin 1 g p.o. t.i.d. to complete about a week of therapy and that should be adequate. If, on the other hand, it is not very susceptible to penicillins, then we need to look at alternative agents. 3. A QuantiFERON Gold will be checked. 4. Note that I will be out of the area for the next three days, returning to work on July 26. I can be reached at any time as needed via text or cellular telephone.
--- NOTE | 2016-07-22 18:58 | PROG NOTE ---
[address] [address] PROGRESS NOTE PATIENT: LOUISA DUNNE : 1940 MR#: [id number] ADMIT: 07/21/2016 JOB ID: [id number] DATE: 07/22/2016 INPATIENT MEDICAL ONCOLOGY PROGRESS REPORT: DIAGNOSIS: 1. Current admission for streptococcal pneumonia. 2. 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 She is currently undergoing adjuvant chemotherapy with gentle weekly carboplatin/Taxol regimen. She has completed two of three planned cycles. Yesterday she was in clinic and was febrile, feeling very poorly, having nausea and a persistent productive cough. She was tachycardic and febrile. She was sent to ER for admission. Chest x-ray showed right lower lobe pneumonia. CT chest angiogram was negative for PE and showed bibasilar pneumonia. Blood cultures grew Streptococcus, with definitive identification pending. Pneumococcal rapid antigen test is positive. She started antibiotic therapy yesterday. She is on ceftriaxone and azithromycin. She has had a quick improvement over the last 24 hours, but remains profoundly weak. Her cough has substantially lessened. Her nausea has improved as well. Vitals are currently normal. Last fever was last midnight at 38.2. LABORATORY DATA: Hemoglobin has dropped to 8.8. CBC is otherwise normal. The magnesium has been replaced and normalized. Renal function is normal. IMPRESSION AND PLAN: A 75-year-old woman undergoing adjuvant chemotherapy for resected uterine cancer, admitted with pneumococcal pneumonia, on ceftriaxone and azithromycin. She is quickly improving. Given severity of illness, and other risk factors including age and chemotherapy, I would like her to stay over the weekend and receive further IV antibiotic therapy. I think by Monday she should be able to go home to complete the rest of the antibiotic therapy orally. Will postpone chemotherapy from at least next week and possibly the following week as well. I appreciate the hospitalist team's excellent care.
[2016-07-22] MEDS ORDERED: Potassium Chloride 20 mEq SR Tablet PO ONE (21:55)
--- NOTE | 2016-07-22 22:02 | NUR ---
Potassium Potassium level 3.2 at 2130. informed MD. new orders for 40mEQ of PO potassium ordered. Tele in place. Will continue to monitor.
[2016-07-23] VITALS (12 sets, daily range): BP systolic 116–130; BP diastolic 73–78; PULSE 66–76; RESP 20–23; O2SAT 87–97
--- NOTE | 2016-07-23 04:47 | NUR ---
Progress Pt on 1.5L 02 via nasal cannula w/ 97% o2 sat. No complaints of N/V or pain during shift. PT had a hard time sleeping and was awake frequently thru night. Closed door to minimize outside stimulus and help with sleep. Pt demonstrates non productive cough. Re-inforced the importance of Cough and deep breathing exercise per plan on white board. Lung sounds decreased bi-lat posteriorly with crackles at bases.
[2016-07-23] MEDS: Albuterol-Ipratropium 3 mL Inhalation Solution NEB SCH ×4 (04:54→21:38)
[2016-07-23] MEDS: Pantoprazole 40 mg ER24 Tablet PO SCH (05:10)
[2016-07-23 05:35] LABS: Mean Corpuscular Hemoglobin 29.1 pg (27.0-35.0); Mean Corpuscular Volume 87.3 fL (81-100); Platelet Count 158 bil/L (150-400)
[2016-07-23] MEDS: 0.9% Sodium Chloride 1,000 ML IV SCH ×2 (05:47→17:20)
[2016-07-23 06:02] LABS: Magnesium 1.9 mg/dL (1.6-2.6)
[2016-07-23 06:20] LABS: NEUTROPHILS % (AUTO) 46 % (40-74)
[2016-07-23 06:21] LABS: BASOPHILS % (AUTO) 1 % (0-3); EOSINOPHILS % (AUTO) 1 % (0-5); MONOCYTES % (AUTO) 7 % (4-12)
[2016-07-23] MEDS ORDERED: Vancomycin Serum Trough XX ONE (07:30)
[2016-07-23] MEDS: lamoTRIgine 100 mg Tablet PO SCH (08:30)
[2016-07-23] MEDS: 0.9% Sodium Chloride 250 ML IV SCH (09:47)
[2016-07-23] MEDS: Venlafaxine XR 75 mg ER24 Capsule PO SCH (10:01)
[2016-07-23] MEDS ORDERED: KCl 40 mEq/100 mL (CENTRAL) 40 MEQ in IV Premix 1 EACH IV ONE (12:15)
[2016-07-23] MEDS: D5W IV SCH ×2 (12:21)
[2016-07-23] MEDS: CEFTRIAXONE 2000 MG/50 ML IV SCH ×2 (12:21)
[2016-07-23] MEDS ORDERED: KCl 40 mEq/D5W 500 mL 40 MEQ in IV Premix 1 EACH IV ONE (12:50)
--- NOTE | 2016-07-23 17:28 | PCM.PNMED ---
Subjective Date of Service Jul 23, 2016 Subjective 75-year-old lady with past medical history of hypertension, asthma, hypothyroidism, osteoporosis, epilepsy, overactive bladder, restless leg syndrome, recent diagnosis of stage IA adenocarcinoma of uterus, underwent RONDA/ SBO in Apr 2016, currently on weekly chemotherapy carboplatin/paclitaxel, last chemotherapy and Neupogen Jul 19. Patient reports not sleeping well overnight, around noon yesterday she began having some minor hallucinations that she describes as a dreamlike state. She has had symptoms like this before when previously taking oxycodone. She was given an oxycodone tablet earlier yesterday morning for pain control. She reports that her breathing is gradually improving but she still has some shortness of breath. No chest pain or dizziness. Later in the morning she developed a headache that was relieved with Tylenol. Exam Vital Signs Vital Sign - Last Date Time Temp Pulse Resp B/P Pulse Ox O2 Delivery O2 Flow Rate FiO2 07/23/16 06:19 36.5 73 23 124/73 95 Nasal Cannula 2.00 Intake and Output 07/22/16 07/22/16 07/23/16 Cumulative From/Thru 15:00 23:00 07:00 07/21/16 16:28 - 07/23/16 00:20 Intake Total 200 ml 3022 ml 604 ml 4826 ml Output Total 250 ml 1325 ml 1575 ml Balance -50 ml 1697 ml 604 ml 3251 ml Intake Oral 200 ml 800 ml 1000 ml IV Total 2222 ml 604 ml 3826 ml Output Urine Total 250 ml 1325 ml 1575 ml # Bowel Movements 2 0 2 Exam General: No acute distress, well-developed, well-nourished, appropriately interactive HEENT: Normocephalic, atraumatic. External ears without defect. Anicteric sclerae, moist conjunctivae, and no lid lag. Oropharynx free of erythema with moist mucosa. Neck: Supple with full range of motion. No jugular venous distension. No lymphadenopathy or thyromegaly. Cardiovascular: Regular rate and rhythm with no murmurs, rubs, or gallops appreciated Pulmonary: Scattered crackles and wheezes bilaterally. Normal respiratory effort with no use of accessory muscles. Abdomen: Bowel tones present. Soft, nontender, nondistended, obese. No hepatosplenomegaly or masses appreciated. Extremities: No clubbing, cyanosis, edema, or lymphadenopathy appreciated. Skin: Normal temperature, turgor, and texture; no rash, ulcers, or subcutaneous nodules appreciated. Neurological: Cranial nerves grossly intact. Normal muscle strength, tone, and bulk. No known gait impairment. Psychiatric: Normal mood and affect. Alert and oriented to person, place, and time. IVs and Medications Medications Reviewed: Medications were reviewed in detail Lab and Diagnostics Result Diagram: 07/23/16 0500 07/23/16 0500 X-Rays, CTs and MRIs CTA IMPRESSION: 1. No evidence for central pulmonary embolism. 2. Findings consistent with evolving bibasilar bronchopneumonia. 3. Large retrocardiac hiatal hernia. 4. Mild cardiomegaly. Dictated by: Raad Valdez M.D. on 07/21/2016 at 17:58 CXR IMPRESSION: 1. Findings consistent with medial right lower lobe pneumonia. 2. Moderate cardiomegaly as before. Dictated by: Raad Valdez M.D. on 07/21/2016 at 17:24 Assessment & Plan Fabiola is a pleasant 75-year-old lady with past medical history of hypertension, asthma, hypothyroidism, osteoporosis, epilepsy, overactive bladder , restless leg syndrome, recent diagnosis of stage IA adenocarcinoma of uterus came to emergency room due to cough and dyspnea of 1 week and fever of one day. 1. Sepsis due to Health care associated pneumonia, present on admission, acute -RR 26,HR 98,temp 38.8 on admission immunocompromised, received neupogen, cbc unreliable -NS given in ED,continue NS at 100ml/h -Influenza screen negative -Blood culture positive for gram-positive cocci possibly strep -LA 1.6 -No neutropenia, received Neupogen recently -Zosyn and vancomycin, discontinued, ceftriaxone day 2 to cover gram-positive cocci, azithromycin converted to by mouth per IDs recommendation. 2. Probable Strep pneumoniae pneumonia, present on admission, active -Rocephin IV 2 g daily -Azithromycin 500 mg by mouth daily for 2 days (a 3 day course) -Oxygen as needed -Duoneb as needed -Benzonatate for cough suppression -CTA negative for PE, consistent with pneumonia -Infectious disease consulting, we are thankful for their input 3. Hypomagnesemia and hypokalemia, acute, poa -Probably due to chemotherapy -Magnesium 1.0, potassium 2.8 upon arrival -Repleted in ED and additionally once admitted when morning labs showed potassium 3.0 and Mg 1.6 -Magnesium increased to 2.3. -Potassium increased to 3.3, 40 mEq given IV today. Recheck potassium this evening. -CMP and magnesium labs in the a.m. 3. Hypertension, chronic, controlled -Continue home meds atenolol 50 mg by mouth daily, hctz 50 mg by mouth daily -amlodipine 10 mg by mouth daily if BP is high 4. History of asthma, chronic -DuoNeb q6h 5. Hypothyroidism, chronic -Continue Synthroid 100 mcg daily 6. History of seizure disorder, chronic -Continue Lamictal 7. Overactive bladder, chronic -Continue oxybutynin 8. History of depression, chronic -Continue venlafaxine 9. Recent diagnosis of uterine cancer on chemotherapy, chronic -Dr. Arzate of oncology consulted. -S/P total hysterectomy with salpingo-oophorectomy bilaterally in April 2016 -Current chemotherapy includes weekly carboplatin and paclitaxel- per oncology chemotherapy will be held for 1 week if not 2. -On Neupogen most recently July 19 10. Insomnia, not present on admission - Patient given melatonin at 1700 Prophylaxis: -Lovenox and PPI Full code, names her as POA,tel [phone] Patient admitted under inpatient status with expected length of stay > 2 midnights for severity of present symptoms, complexities of treatment plan and risk for adverse events Pain Evaluation: Adequate Pain Control GI Prophylaxis: Proton Pump Inhibitor VTE Prophylaxis: Sub-Q Enoxaparin VTE Mechanical Devices: Intermittant Pneumatic CD Resuscitation Status: CPR: Attempt Resuscitation Attending Statement The patient was seen and examined together with Dr. Sanford on 07/23/2016 and I agree with the history, exam and plan as outlined in the note above. Mary Sanford DO Jul 23, 2016 07:19 Edgardo Collado MD Jul 24, 2016 12:14
--- NOTE | 2016-07-23 18:09 | NUR ---
Respiratory: Patient is on 2 liters of 02 . She is receiving scheduled neb treatments. Her 02 sats are in the mid 90s. Patient is short of breath when ambulating to the bathroom. Patient has non productive cough.Her TB test was done this morning and per LAB TB test results are not done on the weekend and wont be available until Monday .
[2016-07-23] MEDS: Fluticasone 250 mCg Inhaler INHALATION PRN (19:10)
[2016-07-24] VITALS (13 sets, daily range): BP systolic 126–150; BP diastolic 67–85; PULSE 62–96; RESP 18–22; O2SAT 96–98
[2016-07-24] MEDS: Albuterol-Ipratropium 3 mL Inhalation Solution NEB SCH ×4 (02:24→20:51)
[2016-07-24] MEDS: 0.9% Sodium Chloride 1,000 ML IV SCH ×2 (05:03→08:49)
[2016-07-24] MEDS: Pantoprazole 40 mg ER24 Tablet PO SCH (05:03)
[2016-07-24 05:25] LABS: Mean Corpuscular Hemoglobin 29.5 pg (27.0-35.0); Mean Corpuscular Volume 88.9 fL (81-100); Platelet Count 167 bil/L (150-400)
[2016-07-24 05:45] LABS: Magnesium 1.5 mg/dL (1.6-2.6)
--- NOTE | 2016-07-24 05:53 | NUR ---
Respiratory/Sleep Patient c/o SOB at beginning of shift. patient was given PRN rescue inhaler per request. patient reports immediate improvement. Patient and family informed that patient needs to rest. patient has had multiple visitors throughout the day and night. Patient agreed to limit visitors for tonight so she can get some rest. Patient was given melatonin per request. patient slept throughout the night. will continue to monitor.
[2016-07-24 05:56] LABS: EOSINOPHILS % (AUTO) 1 % (0-5); MONOCYTES % (AUTO) 7 % (4-12); NEUTROPHILS % (AUTO) 61 % (40-74)
[2016-07-24 05:57] LABS: BASOPHILS % (AUTO) 0 % (0-3)
[2016-07-24] MEDS ORDERED: Potassium Chloride Inj 30 MEQ in Dextrose 5% 250 ML IV ONE (07:15)
[2016-07-24] MEDS ORDERED: Magnesium Sulf 2 Gm/50mL Water 2 GM in IV Premix 1 EACH IV ONE (07:15)
[2016-07-24] MEDS: Venlafaxine XR 75 mg ER24 Capsule PO SCH (08:52)
[2016-07-24] MEDS: lamoTRIgine 100 mg Tablet PO SCH (08:55)
--- NOTE | 2016-07-24 09:51 | DRSVH ---
PROCEDURE: X-RAY CHEST ONE VIEW, PORTABLE ([id number]) INDICATIONS: PNA TECHNIQUE: One view of the chest was acquired. COMPARISON: [facility], CR, XR CHEST 2VW, 07/21/2016, 17:19. FINDINGS: Surgical changes and devices: Left chest port unchanged Lungs and pleura: No definite pleural effusion or pneumothorax. Patchy bibasilar opacities with possi ble mild improvement in the right lung base, otherwise exam unchanged since 07/21/16. Persistent streak y retrocardiac opacities Mediastinum: Mediastinal contours appear normal. Heart size is normal. Bones and chest wall: No suspicious bony lesions. Overlying soft tissues appear unremarkable. IMPRESSION: Possible minimal improvement in medial right basilar opacities otherwise stable examinati on as above Dictated by: Eric Strickland M.D. on 07/24/2016 at 9:49 Approved by: Eric Strickland M.D. on 07/24/2016 at 9:50
[2016-07-24] MEDS: Fluticasone 250 mCg Inhaler INHALATION PRN (11:47)
[2016-07-24] MEDS: D5W IV SCH ×2 (11:48)
[2016-07-24] MEDS: CEFTRIAXONE 2000 MG/50 ML IV SCH ×2 (11:48)
--- NOTE | 2016-07-24 13:00 | NUR ---
[facility] Signed
--- NOTE | 2016-07-24 15:15 | NUR ---
Social Work: Readiness for Discharge D: Pt discussed in am rounds. Pt is not medically stable for discharge home but may be ready in 1-2 days. MEDICINAL CHEMIST met with pt and daughter at bedside to finalize a discharge plan and reassess. Pt has been ambulating I during admission. Pt lives at home with her spouse and family nearby. She has lots of AD and social support. MEDICINAL CHEMIST reviewed possible option for Home Health. At this point, pt and dtr do not feel pt requires HH but understand they can request this from the pt's PCP if they change their mind. A: Pt who is I at baseline. P: Anticipate pt to discharge home via POV with no social work needs once medically stable; MEDICINAL CHEMIST to continue to follow if needs progress or change. RICKY Baldwin
--- NOTE | 2016-07-24 16:42 | PCM.PNMED ---
Subjective Date of Service Jul 24, 2016 Subjective Fabiola Sawant is a 75-year-old lady with past medical history significant for hypertension, asthma, hypothyroidism, osteoporosis, epilepsy, overactive bladder , restless leg syndrome, recent diagnosis of stage IA adenocarcinoma of uterus, underwent RONDA/SBO in Apr 2016, currently on weekly chemotherapy carboplatin/ paclitaxel, last chemotherapy and Neupogen Jul 19 who presented to [facility] emergency department for cough and dyspnea of 1 week and fever of one day. Hospital day #4. Overnight: The patient complained of shortness of breath and was given an albuterol nebulizer treatment with resolution. Otherwise there were no acute events. Telemetry overnight was sinus rhythm, heart rate 60-80's, first degree AV block and occasional PVCs. The patient is resting comfortably in bed in no acute distress. She reports continued cough which she feels is improving. She continues to feel better each day. She denies headache, ear pain, rhinitis, sore throat, shortness of breath, chest pain, abdominal pain, nausea, vomiting, fever, chills, diarrhea or constipation. She endorses recent dysuria. She is voiding and eliminating without difficulty. She is up ambulating infrequently without assistance. . Exam Vital Signs Vital Sign - Last Date Time Temp Pulse Resp B/P Pulse Ox O2 Delivery O2 Flow Rate FiO2 07/24/16 13:56 72 20 96 Room Air 07/24/16 13:31 36.6 126/77 1.00 Intake and Output 07/23/16 07/23/16 07/24/16 Cumulative From/Thru 15:00 23:00 07:00 07/21/16 16:28 - 07/24/16 05:55 Intake Total 1600 ml 2067 ml 400 ml 8893 ml Output Total 250 ml 150 ml 1975 ml Balance 1350 ml 2067 ml 250 ml 6918 ml Intake Oral 1600 ml 1220 ml 400 ml 4220 ml IV Total 847 ml 4673 ml Output Urine Total 250 ml 150 ml 1975 ml # Voids 3 4 1 8 # Bowel Movements 0 0 2 Exam General: No acute distress, well-developed, well-nourished, appropriately interactive HEENT: Normocephalic, atraumatic. External ears without defect. Anicteric sclerae, moist conjunctivae, and no lid lag. Oropharynx free of erythema with moist mucosa. Neck: Supple with full range of motion. No jugular venous distension. No lymphadenopathy or thyromegaly. Cardiovascular: Regular rate and rhythm with no murmurs, rubs, or gallops appreciated. Pulmonary: Scattered fine crackles bilaterally. No wheeze or rales. Normal respiratory effort with no use of accessory muscles. Abdomen: Soft, nontender, nondistended, obese, bowel sounds present. Extremities: No clubbing, cyanosis, or edema. Skin: Normal temperature, turgor, and texture; no rash, ulcers, or subcutaneous nodules appreciated. Neurological: Cranial nerves grossly intact. Normal muscle strength, tone, and bulk. No known gait impairment. Psychiatric: Normal mood and affect. Alert and oriented to person, place, and time. . IVs and Medications Medications Reviewed: Medications were reviewed in detail Lab and Diagnostics Item Value Date Time Calcium Level 7.8 mg/dL L 07/24/16 0500 Magnesium Level 1.5 mg/dL L 07/24/16 0500 Total Bilirubin 0.2 mg/dL 07/24/16 0500 Aspartate Amino Transf (AST/SGOT) 21 U/L 07/24/16 0500 Alanine Aminotransferase (ALT/SGPT) 21 U/L 07/24/16 0500 Alkaline Phosphatase 221 U/L H 07/24/16 0500 Total Protein 5.3 g/dL L 07/24/16 0500 Albumin 3.1 g/dL L 07/24/16 0500 Result Diagram: 07/24/16 0500 07/24/16 0500 Microbiology Influenza screen negative. Blood cultures positive for Streptococcus pneumoniae resistant to Bactrim. Repeat blood cultures showed no growth after 2 days. Urine Streptococcus pneumonia antigen positive. Urine culture grew mixed urogenital lis. C. difficile DNA amplification negative. Respiratory viral PCR negative. . X-Rays, CTs and MRIs CTA IMPRESSION: 1. No evidence for central pulmonary embolism. 2. Findings consistent with evolving bibasilar bronchopneumonia. 3. Large retrocardiac hiatal hernia. 4. Mild cardiomegaly. Dictated by: Raad Valdez M.D. on 07/21/2016 at 17:58 CXR IMPRESSION: 1. Findings consistent with medial right lower lobe pneumonia. 2. Moderate cardiomegaly as before. Dictated by: Raad Valdez M.D. on 07/21/2016 at 17:24 Assessment & Plan Fabiola Sawant is a 75-year-old lady with past medical history significant for hypertension, asthma, hypothyroidism, osteoporosis, epilepsy, overactive bladder , restless leg syndrome, recent diagnosis of stage IA adenocarcinoma of uterus, underwent RONDA/SBO in Apr 2016, currently on weekly chemotherapy carboplatin/ paclitaxel, last chemotherapy and Neupogen Jul 19 who presented to [facility] emergency department for cough and dyspnea of 1 week and fever of one day. Hospital day #4. 1. Streptococcus pneumoniae pneumonia, present on admission. Active. - Continue Rocephin IV 2 g daily and azithromycin 500 mg by mouth daily for 2 days (a 3 day course) per infectious disease. Will switch to amoxicillin 1 g PO 3 times a day at time of discharge. - Continue supplemental oxygen as needed. - DuoNeb as needed for shortness of breath and benzonatate for cough suppression. - CTA negative for PE and consistent with pneumonia, as above. - Influenza screen and respiratory viral PCR negative, as above. - Blood culture positive for Streptococcus pneumoniae. - LA normal at 1.6. - No neutropenia, however, received Neupogen recently. - Infectious disease consulted and following. We appreciate their input. 2. Streptococcus pneumoniae bacteremia, present on admission. Resolved. - Continue to treat with IV antibiotics as above under problem #1. 3. Acute hypomagnesemia and hypokalemia, present on admission. Ongoing. - Likely secondary to chemotherapy - Magnesium 1.0, potassium 2.8 upon admission. - Continue to monitor and replete as needed. 4. Sepsis due to acute health care associated pneumonia, present on admission. Resolved. - SIRS criteria met: Respiratory rate 26, heart rate 98, and temperature 38.8 Celsius on admission in an immunocompromised patient receiving Neupogen with CBC that is unreliable. - NS given in ED. Discontinued NS at 100 mL/hr today. Chronic problems: Hypertension, chronic, controlled - Continue home meds atenolol 50 mg by mouth daily, hctz 50 mg by mouth daily - May give amlodipine 10 mg by mouth if HTN. History of asthma, chronic - DuoNeb every 6 hours as needed for shortness of breath. Hypothyroidism, chronic - Continue levothyroxine 100 mcg daily. History of seizure disorder, chronic. - Continue Lamictal 200 mg daily. Overactive bladder, chronic - Continue oxybutynin 5 mg daily. History of depression, chronic - Continue venlafaxine 300 mg daily. Recent diagnosis of uterine cancer on chemotherapy, chronic - S/P total hysterectomy with salpingo-oophorectomy bilaterally in April 2016 - Current chemotherapy includes weekly carboplatin and paclitaxel- per oncology chemotherapy will be held for 1 week if not 2. - Given Neupogen most recently July 19. - Dr. Arzate of oncology consulted. Insomnia, not present on admission - Continue melatonin at 1700. Prophylaxis: - Lovenox and PPI. Disposition: Likely to discharge in 1-2 days depending upon clinical progress. GI Prophylaxis: Proton Pump Inhibitor VTE Prophylaxis: Sub-Q Enoxaparin VTE Mechanical Devices: Intermittant Pneumatic CD Resuscitation Status: CPR: Attempt Resuscitation Attending Statement The patient was seen and examined together with Dr. Sparks on 07/24/2016 and I agree with the history, exam and plan as outlined in the note above. Lore Sparks DO Jul 24, 2016 16:41 Edgardo Collado MD Jul 25, 2016 13:10
[2016-07-24 17:50] LABS: APPEARANCE,URINE CLEAR (CLEAR,HAZY); COLOR,URINE YELLOW (YELLOW); OCCULT BLOOD,URINE SMALL (NEGATIVE); UROBILINOGEN,URINE NORMAL (NORMAL)
--- NOTE | 2016-07-24 18:17 | NUR ---
02/activity Pt on 2L at beginning of shift, denied any SOB/distress. She will ind remove 02. Pt became very SOB x2 after amb to BR and back, required rescue inhaler x1. Enc pt to keep [address], she verbalizes understanding but is forgetful. Currently resting comfortably in bed, [address] Bed in lowest, locked position and call light in reach.
[2016-07-24 19:30] LABS: Magnesium 1.7 mg/dL (1.6-2.6)
[2016-07-25] VITALS (13 sets, daily range): BP systolic 136–166; BP diastolic 65–90; PULSE 70–87; RESP 16–24; O2SAT 92–96
[2016-07-25] MEDS: Albuterol-Ipratropium 3 mL Inhalation Solution NEB SCH ×4 (02:55→21:59)
[2016-07-25 05:43] LABS: Mean Corpuscular Hemoglobin 29.7 pg (27.0-35.0); Mean Corpuscular Volume 89.4 fL (81-100); Platelet Count 202 bil/L (150-400)
[2016-07-25] MEDS: Pantoprazole 40 mg ER24 Tablet PO SCH (05:58)
[2016-07-25 05:59] LABS: BASOPHILS % (AUTO) 1 % (0-3); EOSINOPHILS % (AUTO) 2 % (0-5); MONOCYTES % (AUTO) 9 % (4-12)
[2016-07-25 06:00] LABS: NEUTROPHILS % (AUTO) 59 % (40-74)
[2016-07-25 06:29] LABS: Magnesium 1.6 mg/dL (1.6-2.6)
[2016-07-25] MEDS: lamoTRIgine 100 mg Tablet PO SCH (08:45)
[2016-07-25] MEDS: Venlafaxine XR 75 mg ER24 Capsule PO SCH (08:48)
[2016-07-25] MEDS: Albuterol 2.5 mg/3 mL Inhalation Solution NEB PRN (12:01)
[2016-07-25] MEDS: Fluticasone 250 mCg Inhaler INHALATION PRN ×2 (12:18→22:19)
--- NOTE | 2016-07-25 15:48 | PCM.PNMED ---
Subjective Date of Service Jul 25, 2016 Subjective 75-year-old lady with past medical history significant for hypertension, asthma , hypothyroidism, osteoporosis, epilepsy, overactive bladder, restless leg syndrome, recent diagnosis of stage IA adenocarcinoma of uterus, underwent RONDA/ SBO in Apr 2016, currently on weekly chemotherapy carboplatin/paclitaxel, last chemotherapy and Neupogen Jul 19 who presented to [facility] emergency department for cough and dyspnea of 1 week and fever of one day. Hospital day #5. Overnight patient needed O2 especially after ambulating to the bathroom. She still has cough and difficulty getting air, she feels the cough precipitates a headache. She has no abdominal pain or dizziness this morning. Exam Vital Signs Vital Sign - Last Date Time Temp Pulse Resp B/P Pulse Ox O2 Delivery O2 Flow Rate FiO2 07/25/16 05:56 36.7 75 18 166/77 95 Room Air 07/24/16 18:26 1.00 Intake and Output 07/24/16 07/24/16 07/25/16 Cumulative From/Thru 15:00 23:00 07:00 07/21/16 16:28 - 07/25/16 06:48 Intake Total 1364 ml 2370 ml 400 ml 90061 ml Output Total 800 ml 1075 ml 3850 ml Balance 1364 ml 1570 ml -675 ml 9177 ml Intake Oral 1600 ml 400 ml 6220 ml IV Total 1364 ml 770 ml 6807 ml Output Urine Total 800 ml 1075 ml 3850 ml # Voids 2 1 11 # Bowel Movements 2 Exam General: No acute distress, well-developed, well-nourished, appropriately interactive HEENT: Normocephalic, atraumatic. External ears without defect. Anicteric sclerae, moist conjunctivae, and no lid lag. Oropharynx free of erythema with moist mucosa. Neck: Supple with full range of motion. No jugular venous distension. No lymphadenopathy or thyromegaly. Cardiovascular: Regular rate and rhythm with no murmurs, rubs, or gallops appreciated Pulmonary: Crackles in medial right lower lobe area otherwise clear to auscultation with good air movement. Normal respiratory effort with no use of accessory muscles. Abdomen: Bowel tones present. Soft, nontender, nondistended, obese. No hepatosplenomegaly or masses appreciated. Extremities: trace edema bilateral lower extremities, no clubbing, cyanosis, or lymphadenopathy appreciated. Skin: Normal temperature, turgor, and texture; no rash, ulcers, or subcutaneous nodules appreciated. Neurological: Cranial nerves grossly intact. Normal muscle strength, tone, and bulk. No known gait impairment. Psychiatric: Normal mood and affect. Alert and oriented to person, place, and time. Lab and Diagnostics Result Diagram: 07/25/1652807/25/16528 Microbiology Influenza screen negative. Blood cultures positive for Streptococcus pneumoniae resistant to Bactrim. Repeat blood cultures showed no growth after 2 days. Urine Streptococcus pneumonia antigen positive. Urine culture grew mixed urogenital lis. C. difficile DNA amplification negative. Respiratory viral PCR negative. . X-Rays, CTs and MRIs CTA IMPRESSION: 1. No evidence for central pulmonary embolism. 2. Findings consistent with evolving bibasilar bronchopneumonia. 3. Large retrocardiac hiatal hernia. 4. Mild cardiomegaly. Dictated by: Raad Valdez M.D. on 07/21/2016 at 17:58 CXR IMPRESSION: 1. Findings consistent with medial right lower lobe pneumonia. 2. Moderate cardiomegaly as before. Dictated by: Raad Valdez M.D. on 07/21/2016 at 17:24 Assessment & Plan Fabiola Sawant is a 75-year-old lady with past medical history significant for hypertension, asthma, hypothyroidism, osteoporosis, epilepsy, overactive bladder , restless leg syndrome, recent diagnosis of stage IA adenocarcinoma of uterus, underwent RONDA/SBO in Apr 2016, currently on weekly chemotherapy carboplatin/ paclitaxel, last chemotherapy and Neupogen Jul 19 who presented to [facility] emergency department for cough and dyspnea of 1 week and fever of one day. Hospital day #5. 1. Streptococcus pneumoniae pneumonia, present on admission. Active. - Disontinue Rocephin IV 2 g daily and azithromycin 500 mg by mouth - Switch to amoxicillin 1 g PO 3 times a day at time of discharge. - Continue supplemental oxygen as needed. - DuoNeb as needed for shortness of breath and benzonatate for cough suppression. - CTA negative for PE and consistent with pneumonia, as above. - Influenza screen and respiratory viral PCR negative - Blood culture positive for Streptococcus pneumoniae. - LA normal at 1.6. - Neutropenia, received Neupogen recently. not neutropenic today - Infectious disease consulted and following. We appreciate their input. 2. Streptococcus pneumoniae bacteremia, present on admission. Resolved. - Continue to treat with PO antibiotics as above under problem #1. 3. Acute hypomagnesemia and hypokalemia, present on admission. Ongoing. - Likely secondary to chemotherapy - Magnesium 1.0, potassium 2.8 upon admission. Both within normal range today. - Continue to monitor and replete as needed. 4. Sepsis due to acute health care associated pneumonia, present on admission. Resolved. - SIRS criteria met: Respiratory rate 26, heart rate 98, and temperature 38.8 Celsius on admission in an immunocompromised patient receiving Neupogen with CBC that is unreliable. - NS given in ED. Discontinued continuous saline infusion, adequate oral intake. Chronic problems: Hypertension, chronic, controlled - Continue home meds atenolol 50 mg by mouth daily, hctz 50 mg by mouth daily - May give amlodipine 10 mg by mouth if HTN. History of asthma, chronic - DuoNeb every 6 hours as needed for shortness of breath. Hypothyroidism, chronic - Continue levothyroxine 100 mcg daily. History of seizure disorder, chronic. - Continue Lamictal 200 mg daily. Overactive bladder, chronic - Continue oxybutynin 5 mg daily. History of depression, chronic - Continue venlafaxine 300 mg daily. Recent diagnosis of uterine cancer on chemotherapy, chronic - S/P total hysterectomy with salpingo-oophorectomy bilaterally in April 2016 - Current chemotherapy includes weekly carboplatin and paclitaxel- per oncology chemotherapy will be held for 1 week if not 2. - Given Neupogen most recently July 19. - Dr. Arzate of oncology consulted. Insomnia, not present on admission - Continue melatonin at 1700. Prophylaxis: - Lovenox and PPI. Disposition: Likely to discharge in 1-2 days depending upon clinical progress. Pain Evaluation: Adequate Pain Control GI Prophylaxis: Proton Pump Inhibitor VTE Prophylaxis: Sub-Q Enoxaparin VTE Mechanical Devices: Intermittant Pneumatic CD Resuscitation Status: CPR: Attempt Resuscitation Attending Statement The patient was seen and examined together with Dr. Sanford on 07/25/2016 and I agree with the history, exam and plan as outlined in the note above. Mary Sanford DO Jul 25, 2016 08:03 Edgardo Collado MD Jul 26, 2016 14:10
[2016-07-25] MEDS ORDERED: 0.9% Sodium Chloride 250 ML ONE (20:57)
--- NOTE | 2016-07-25 22:35 | NUR ---
Coughing Fit Pt had 2 episodes of coughing fits that lasted several minutes each time. Pt had difficulty breathing, became red in the face but oxygen sats came back shortly after. Flovent given PRN and BID. RT instructed to make sure its given BID. Will report to next shift. Tessalon pearls given to help reduce coughing urge. Continuing to monitor, instructed pt to call when feeling the need for breathing treatments.
[2016-07-26] VITALS (16 sets, daily range): BP systolic 125–165; BP diastolic 63–95; PULSE 67–92; RESP 16–20; O2SAT 94–97
[2016-07-26] MEDS: Albuterol-Ipratropium 3 mL Inhalation Solution NEB SCH ×4 (04:54→21:28)
[2016-07-26] MEDS: Pantoprazole 40 mg ER24 Tablet PO SCH (05:54)
[2016-07-26 05:59] LABS: Mean Corpuscular Hemoglobin 28.9 pg (27.0-35.0); Mean Corpuscular Volume 91.3 fL (81-100); Platelet Count 192 bil/L (150-400)
[2016-07-26 06:57] LABS: BASOPHILS % (AUTO) 3 % (0-3); EOSINOPHILS % (AUTO) 0 % (0-5); MONOCYTES % (AUTO) 2 % (4-12); NEUTROPHILS % (AUTO) 59 % (40-74)
--- NOTE | 2016-07-26 07:26 | NUR ---
IV Pt's RT hand IV was occluded and unable to flush. IV Removed with catheter intact. Pt states "Oh that feels so much better." No s/sx of redness or infection noted. LT bridgette cath accessed TKO NS 10ml/hr . Care ongoing.
[2016-07-26] MEDS: lamoTRIgine 100 mg Tablet PO SCH (08:30)
[2016-07-26] MEDS: Fluticasone 250 mCg Inhaler INHALATION PRN ×2 (09:33→16:05)
[2016-07-26] MEDS: Venlafaxine XR 75 mg ER24 Capsule PO SCH (09:34)
[2016-07-26] MEDS ORDERED: Benzocaine-Menthol Lozenge 2/Pkg PO PRN (11:00)
[2016-07-26] MEDS ORDERED: Dextrose 5% 250 ML IV SCH (11:00)
--- NOTE | 2016-07-26 12:52 | NUR ---
Social Work Readiness for Discharge: SW met with patient and spouse at bedside to discuss discharge plan. SW provided patient with [facility] choice list to offer HHC options at discharge. Patient and states choice as [facility], . SW faxed referral and face to face to [phone] F. Patient able to assist with patient care needs at home and to provide transport home. No other anticipated discharge needs at this time. SW to follow up with [facility] to ensure STOC arrangements at discharge. SW to follow. PLAN: Home with spouse and HHC via [facility]. Face to face provided. IAN to follow pending further clinical course Richy GARCÍA Addendum: 07/26/16 at 1257 by BART DELUCA SS Patient was on room air at bedside. IAN will continue to follow for 02 related needs. IAN to follow. Richy GARCÍA
[2016-07-26] MEDS ORDERED: KCl 40 mEq/D5W 500 mL 40 MEQ in IV Premix 1 EACH IV ONE ×2 (13:10→19:50)
[2016-07-26] MEDS ORDERED: SODIUM CHLORIDE IV ONE (14:35)
--- NOTE | 2016-07-26 16:26 | PCM.PNMED ---
Subjective Date of Service Jul 26, 2016 Subjective 75-year-old lady with past medical history significant for hypertension, asthma , hypothyroidism, osteoporosis, epilepsy, overactive bladder, restless leg syndrome, recent diagnosis of stage IA adenocarcinoma of uterus, underwent RONDA/ SBO in Apr 2016, currently on weekly chemotherapy carboplatin/paclitaxel, last chemotherapy and Neupogen Jul 19 who presented to [facility] emergency department for cough and dyspnea of 1 week and fever of one day. Hospital day #6. Patient did well overnight without need for oxygen. She reports having occasional coughing fits. This morning she repeats feeling very tired with some shortness of breath but overall much improved. Exam Vital Signs Vital Sign - Last Date Time Temp Pulse Resp B/P Pulse Ox O2 Delivery O2 Flow Rate FiO2 07/26/16 06:02 36.6 71 18 137/84 95 Room Air 07/25/16 12:02 3.00 Intake and Output 07/25/16 07/25/16 07/26/16 Cumulative From/Thru 15:00 23:00 07:00 07/21/16 16:28 - 07/26/16 06:31 Intake Total 1800 ml 503 ml 69248 ml Output Total 1175 ml 1625 ml 6650 ml Balance 625 ml -1122 ml 8680 ml Intake Oral 1800 ml 200 ml 8220 ml IV Total 303 ml 7110 ml Output Urine Total 1175 ml 1625 ml 6650 ml # Voids 11 # Bowel Movements 0 2 Exam General: No acute distress, well-developed, well-nourished, appropriately interactive HEENT: Normocephalic, atraumatic. External ears without defect. Anicteric sclerae, moist conjunctivae, and no lid lag. Oropharynx free of erythema with moist mucosa. Neck: Supple with full range of motion. No jugular venous distension. No lymphadenopathy or thyromegaly. Cardiovascular: Regular rate and rhythm with no murmurs, rubs, or gallops appreciated Pulmonary: mild crackles in medial right lower lobe otherwise clear to auscultation with good air movement. Normal respiratory effort with no use of accessory muscles. Abdomen: Bowel tones present. Soft, nontender, nondistended, obese. No hepatosplenomegaly or masses appreciated. Extremities: trace edema bilateral lower extremities, no clubbing, cyanosis, or lymphadenopathy appreciated. Skin: Normal temperature, turgor, and texture; no rash, ulcers, or subcutaneous nodules appreciated. Neurological: Cranial nerves grossly intact. Normal muscle strength, tone, and bulk. No gait impairment. Psychiatric: Normal mood and affect. Alert and oriented to person, place, and time. Lab and Diagnostics Result Diagram: 07/26/16 0540 07/26/1640 Microbiology Influenza screen negative. Blood cultures positive for Streptococcus pneumoniae resistant to Bactrim. Repeat blood cultures showed no growth after 2 days. Urine Streptococcus pneumonia antigen positive. Urine culture grew mixed urogenital lis. C. difficile DNA amplification negative. Respiratory viral PCR negative. . X-Rays, CTs and MRIs CTA IMPRESSION: 1. No evidence for central pulmonary embolism. 2. Findings consistent with evolving bibasilar bronchopneumonia. 3. Large retrocardiac hiatal hernia. 4. Mild cardiomegaly. Dictated by: Raad Valdez M.D. on 07/21/2016 at 17:58 CXR IMPRESSION: 1. Findings consistent with medial right lower lobe pneumonia. 2. Moderate cardiomegaly as before. Dictated by: Raad Valdez M.D. on 07/21/2016 at 17:24 Assessment & Plan Fabiola Sawant is a 75-year-old lady with past medical history significant for hypertension, asthma, hypothyroidism, osteoporosis, epilepsy, overactive bladder , restless leg syndrome, recent diagnosis of stage IA adenocarcinoma of uterus, underwent RONDA/SBO in Apr 2016, currently on weekly chemotherapy carboplatin/ paclitaxel, last chemotherapy and Neupogen Jul 19 who presented to [facility] emergency department for cough and dyspnea of 1 week and fever of one day. Hospital day #6. 1. Streptococcus pneumoniae pneumonia, present on admission. Active. - Disontinued Rocephin IV 2 g daily and azithromycin 500 mg by mouth - Switch to amoxicillin 1 g PO 3 times a day - Continue supplemental oxygen as needed. - DuoNeb as needed for shortness of breath - benzonatate dose increased for cough suppression, Cepacol lozenges to help decrease cough reflex - CTA negative for PE and consistent with pneumonia, as above. - Influenza screen and respiratory viral PCR negative - Blood culture positive for Streptococcus pneumoniae. - LA normal at 1.6. - Neutropenia, received Neupogen recently. not neutropenic today - Infectious disease consulted and following. We appreciate their input. 2. Streptococcus pneumoniae bacteremia, present on admission. Resolved. - Continue to treat with PO antibiotics as above under problem #1. 3. Acute hypomagnesemia and hypokalemia, present on admission. Ongoing. - Likely secondary to chemotherapy - Magnesium 1.0, potassium 2.8 upon admission. Both within normal range today. - Continue to monitor and replete as needed. 4. Sepsis due to acute health care associated pneumonia, present on admission. Resolved. - SIRS criteria met: Respiratory rate 26, heart rate 98, and temperature 38.8 Celsius on admission in an immunocompromised patient receiving Neupogen with CBC that is unreliable. - NS given in ED. Discontinued continuous saline infusion, adequate oral intake. 5. Hypernatremia, not present on admission, Q -Patient has a calculated free water deficit of 2.7 L this is to be replated over 24 hours at a rate of 115 mL/h of D5W 6. Anemia, present on admission, acute - Hemoglobin and hematocrit 7.3 and 23.1 respectively today -Per Dr. Arzate of hematology/oncology transfuse1 unit packed RBCs Chronic problems: Hypertension, chronic, controlled - Continue home meds atenolol 50 mg by mouth daily, hctz 50 mg by mouth daily - May give amlodipine 10 mg by mouth if HTN. History of asthma, chronic - DuoNeb every 6 hours as needed for shortness of breath. Hypothyroidism, chronic - Continue levothyroxine 100 mcg daily. History of seizure disorder, chronic. - Continue Lamictal 200 mg daily. Overactive bladder, chronic - Continue oxybutynin 5 mg daily. History of depression, chronic - Continue venlafaxine 300 mg daily. Recent diagnosis of uterine cancer on chemotherapy, chronic - S/P total hysterectomy with salpingo-oophorectomy bilaterally in April 2016 - Current chemotherapy includes weekly carboplatin and paclitaxel- per oncology chemotherapy will be held for 1 week if not 2. - Given Neupogen most recently July 19. - Dr. Arzate of oncology consulted. Insomnia, not present on admission - Continue melatonin at 1700. Prophylaxis: - Lovenox and PPI. Disposition: Likely to discharge in 1-2 days depending upon clinical progress. GI Prophylaxis: Proton Pump Inhibitor VTE Prophylaxis: Sub-Q Enoxaparin VTE Mechanical Devices: Intermittant Pneumatic CD Resuscitation Status: CPR: Attempt Resuscitation Attending Statement The patient was seen and examined together with Dr. Sanford on 07/26/2016 and I agree with the history, exam and plan as outlined in the note above. Mary Sanford DO Jul 26, 2016 08:41 Edgardo Collado MD Jul 27, 2016 12:46
--- NOTE | 2016-07-26 17:42 | PROG NOTE ---
[address] [address] PROGRESS NOTE PATIENT: LOUISA DUNNE : 1940 MR#: [id number] ADMIT: 07/21/2016 JOB ID: [id number] DATE: 07/26/2016 REASON FOR FOLLOWUP: Bacteremic pneumococcal pneumonia. INTERVAL HISTORY: Recall this is our 75-year-old woman patient with uterine malignancy who has been receiving chemotherapy. She was admitted some five days ago for bacteremic pneumococcal pneumonia. The patient reports she has been improving considerably on her intravenous and now oral therapy. She continues to get diaphoretic when she walks as far as 20 feet to the bathroom as she is profoundly debilitated prior to hospitalization though she could only go about 50 feet so she has lost some functionality but was quite limited given prior to admission. Admission she is not having fever or chills. She continues to have a largely nonproductive cough which is somewhat better she has no pleuritic chest pain. PHYSICAL EXAMINATION: Reveals an afebrile woman. She was only febrile during her first day here in the hospital on July 21 and since has been completely afebrile, 36.6 this afternoon, pulse 71, respiratory rate 18, blood pressure 135/79, saturating well on room air. Eyes without conjunctivitis. Oral cavity benign. Lungs. Some right rales at the base. Cardiac tones without new murmur. Abdomen: Obese, soft and nontender. No skin rash. LABORATORIES: Include a white count of 3800, hematocrit 23, platelet count 192, creatinine 0.55. Urinalysis negative. Urine Legionella negative. QuantiFERON Gold is still pending. The blood culture grew pneumococcus and the urine was positive by pneumococcal antigen back on the . C. diff was negative and MRSA screen likewise negative. IMAGING: Includes a chest x-ray done on the which shows an improving right-sided infiltrate. IMPRESSION: This patient has improved considerably here in the hospital with IV ceftriaxone and azithromycin which have now been transitioned to oral amoxicillin as had been recommended in the prior notes. The patient seems to be steadily improving with respect to her overall clinical situation though she is hampered by various hematologic and chemical abnormalities which have led to a delay in her discharge. At this point, I see no reason why she needs to be in the hospital any longer from an Infectious Disease point of view. RECOMMENDATIONS: 1. I would finish out a 10-day total course of antibiotics which would include about five more days of oral amoxicillin through the 31 of July. 2. The patient can be discharged anytime on the amoxicillin 1 g t.i.d. through the . 3. ID will go ahead and sign off at this time but thank you for this consult.
--- NOTE | 2016-07-26 19:10 | PROG NOTE ---
[address] [address] PROGRESS NOTE PATIENT: LOUISA DUNNE : 1940 MR#: [id number] ADMIT: 07/21/2016 JOB ID: [id number] DATE: 07/26/2016 DIAGNOSES: 1. Current admission for pneumococcal pneumonia. 2. 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 SUBJECTIVE: She feels overall better, but still profoundly weak, and still gets intermittent protracted coughing spells. She also feels somewhat bloated. OBJECTIVE: Currently resting comfortably in bed and eating her supper. She does not appear in any respiratory distress. She has been afebrile basically ever since admission except the first half day. Vital signs are all normal, including blood pressure 144/87, heart rate 75, temperature 36.7, O2 saturation 95% on 2 L. LABORATORY DATA: Hemoglobin today dropped to 7.3, otherwise normal CBC. Chemistry is normal except albumin 2.9 and mild hypernatremia with sodium 146. Pro calcitonin has dropped to 0.7. IMPRESSION AND RECOMMENDATIONS: 1. Pneumococcal pneumonia. She can be discharged tomorrow on oral amoxicillin to complete a course of antibiotic therapy. 2. Severe anemia. 1 unit blood transfusion is currently being given. 3. Volume overloaded. She has received plenty of IV fluids in the hospital. She is on hydrochlorothiazide 50 mg once daily which has been continued during hospital stay, but I would like her to receive furosemide 40 mg once daily x7 days upon discharge, then resume hydrochlorothiazide. 4. 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 She has follow-up appointment with me on August 03, and depending on her status at that point, we might resume her adjuvant chemotherapy.
--- NOTE | 2016-07-26 19:50 | NUR ---
BLOOD Transfusion Order for 1 Unit PRBC. Administered per protocol. VS recorded. 2nd VS set had slightly elevated BP and HR. Continued to monitor Q15min. VS came back down to baseline. Pt reported some tingling in arms, no other sx, VS normal. Continued to monitor. Tingling shortly resolved. No s/sx of distress.
[2016-07-26] MEDS ORDERED: 0.9% Sodium Chloride 250 ML ONE (20:09)
[2016-07-27] MEDS: Albuterol-Ipratropium 3 mL Inhalation Solution NEB SCH ×3 (02:41→15:01)
[2016-07-27 02:43] VITALS: PULSE 72; RESP 18; O2SAT 93
[2016-07-27 05:13] VITALS: BP 151/80; PULSE 82; RESP 18; O2SAT 95
[2016-07-27] MEDS: Pantoprazole 40 mg ER24 Tablet PO SCH (05:28)
[2016-07-27 05:59] LABS: BASOPHILS % (AUTO) 0.5 % (0-3); EOSINOPHILS % (AUTO) 0.7 % (0-5); MONOCYTES % (AUTO) 8.8 % (4-12); Mean Corpuscular Hemoglobin 28.8 pg (27.0-35.0); Mean Corpuscular Volume 90.9 fL (81-100); NEUTROPHILS % (AUTO) 59.4 % (40-74); Platelet Count 230 bil/L (150-400)
--- NOTE | 2016-07-27 06:31 | NUR ---
Transfers Patient educated on fall risk and side effects of being. Patient and encouraged to call staff members to help patient to bathroom. patient ambulated to bathroom SBA. slightly unsteady on feet. uses call light appropriately. will continue to monitor.
[2016-07-27] MEDS: Fluticasone 250 mCg Inhaler INHALATION PRN (08:06)
[2016-07-27] MEDS: Venlafaxine XR 75 mg ER24 Capsule PO SCH (08:07)
[2016-07-27] MEDS: lamoTRIgine 100 mg Tablet PO SCH (08:15)
[2016-07-27] MEDS ORDERED: Dextrose 5% 1,000 ML IV SCH (08:25)
[2016-07-27 08:36] VITALS: PULSE 77; RESP 18; O2SAT 96
[2016-07-27 10:11] VITALS: BP 127/84; PULSE 73; RESP 24; O2SAT 93
[2016-07-27 10:51] VITALS: PULSE 69
[2016-07-27] MEDS ORDERED: SACC250C PO (13:21)
[2016-07-27] MEDS ORDERED: FURO40SO4 PO (13:21)
[2016-07-27] MEDS ORDERED: BENZ100C8 PO (13:21)
[2016-07-27] MEDS ORDERED: POTA-64 PO (13:21)
[2016-07-27] MEDS ORDERED: AMOX500T2 PO (13:27)
--- NOTE | 2016-07-27 13:32 | PCM.DIMED ---
Mary Sanford DO 07/27/16 1326: Discharge Instructions Date of Service Jul 27, 2016 Dates of Hospitalization Jul 21, 2016 at 19:21 Discharge Diagnosis Discharge Diagnosis 1. Streptococcus pneumoniae pneumonia 2. Streptococcus pneumoniae bacteremia 3. Hypokalemia 4. Hypomagnesemia 5. Sepsis 6. Anemia Medication Instructions Taking her previously prescribed medications as directed. Hold hydrochlorothiazide for 7 days. Take furosemide 40 mg daily and potassium for those 7 days. Once you have completed this please resume hydrochlorothiazide Continue to take your antibiotic until July 31. You have also been given prescriptions for Tessalon Perles to help with your cough and probiotics. Diet Heart Healthy Activity Home Health Phyical Therapy ([facility] Call your provider Fever or Chills, Shortness of breath, Chest pain, Excessive diarrhea, Weakness ( unilateral) Patient Instructions Slowly increase her activity over the next few days as you continue to recover. Remember to take deep breaths often. Continue to drink plenty of water over the next few days. Follow-up plan Follow-up with your oncologist at your already scheduled appointment on August 03. Follow-up with your primary care provider within the next 2 weeks. Follow-up Provider: Charlene Kelly Follow-up with PCP in: 2 weeks Provider: Heydi Arzate MD Follow-up in: 1 week Edgardo Collado MD 08/04/16 1403: Mary Sanford DO Jul 27, 2016 13:26 Edgardo Collado MD Aug 04, 2016 14:03
--- NOTE | 2016-07-27 13:52 | NUR ---
Social Work: Discharge Data: Pt is on day 6 of hospitalization. EMR reviewed. Pt D/C orders are in. [employer] called [facility] and faxed over F2F and d/c orders. No further d/c planning needs at this time. [employer] will continue to follow if needs arise. Assessment: Pt who is independent at baseline. Plan: Pt will d/c home via POV today with [facility] RN/PT. No further d/c planning needs at this time. [employer] will continue to follow if needs arise. RICKY Mayes
[2016-07-27] MEDS ORDERED: ALBU2.5V4 INHALATION (14:06)
[2016-07-27] MEDS ORDERED: FLUT250D2 IH (14:06)
[2016-07-27 15:02] VITALS: PULSE 70; RESP 20; O2SAT 96
--- NOTE | 2016-07-27 16:45 | NUR ---
Discharge Note: Patient was discharged home at 1645 . Patients GhanshyamaCath was deaccessed by IV therapy. All of patients discharge information was reviewed with her and her questions were answered to her satisfaction. Patient was brought to the hospital lobby by nursing staff member and she was driven home by her .
--- NOTE | 2016-07-27 22:25 | PCM.DC.MED ---
Discharge Summary Date of Service Jul 27, 2016 Dates of Hospitalization Date of Hospital Admission Jul 21, 2016 at 19:21 Date of Discharge: Jul 27, 2016 Providers: Admitting Physician: Luis Dennis MD Primary Care Physician: Charlene Kelly Attending Physician: Luis Dennis MD Diagnosis at Time of Discharge Diagnosis at Time of Discharge 1. Streptococcus pneumoniae pneumonia 2. Streptococcus pneumoniae bacteremia 3. Hypokalemia 4. Hypomagnesemia 5. Sepsis 6. Anemia Consultations Dr. Almonte with infectious disease Dr. Arzate with hematology/oncology Procedures XRay, CTs & MRIs CTA IMPRESSION: 1. No evidence for central pulmonary embolism. 2. Findings consistent with evolving bibasilar bronchopneumonia. 3. Large retrocardiac hiatal hernia. 4. Mild cardiomegaly. Dictated by: Raad Valdez M.D. on 07/21/2016 at 17:58 CXR IMPRESSION: 1. Findings consistent with medial right lower lobe pneumonia. 2. Moderate cardiomegaly as before. Dictated by: Raad Valdez M.D. on 07/21/2016 at 17:24 CXR PROCEDURE: X-RAY CHEST ONE VIEW, PORTABLE ([id number]) IMPRESSION: Possible minimal improvement in medial right basilar opacities otherwise stable examination as above Dictated by: Eric Strickland M.D. on 07/24/2016 at 9:49 Brief History History of present illness on admission by Dr. Dennis: Fabiola is a pleasant 75-year-old lady with past medical history of hypertension, asthma, hypothyroidism, osteoporosis, epilepsy, overactive bladder , restless leg syndrome, recent diagnosis of stage IA adenocarcinoma of uterus, underwent RONDA/SBO in Apr 2016, currently on weekly chemotherapy carboplatin/ paclitaxel, last chemotherapy and Neupogen Jul 7. She has been coughing for the last 1 week which progressively worsened in the last few days. She also has progressively worsening dyspnea for the last 3-4 days. She also has generalized weakness and malaise. She noted she has fever today . Denies sick contact. She has asthma, she occasionally takes albuterol inhalers as needed. No history of hospitalization for exacerbation. She also had sudden onset frequent watery diarrhea yesterday. Presumed to be due to Neupogen and was instructed by her physician to take Imodium and diarrhea resolved yesterday. In ED initial temp 35.4, repeat temp 38.8 HR 96, BP 127/74, RR 22, WBC 4.3, neutrophils 67.6%, sodium 131, potassium 2.8, magnesium 1.0, lactate 1.6 CTA negative for PE, bibasilar pneumonia,CXR medial right lower lobe pneumonia. Blood culture sent Potassium and magnesium repleted, Zosyn and vancomycin started. Hospitalist service requested for admission for pneumonia Hospital Course Fabiola Sawant is a 75-year-old lady with past medical history significant for hypertension, asthma, hypothyroidism, osteoporosis, epilepsy, overactive bladder , restless leg syndrome, recent diagnosis of stage IA adenocarcinoma of uterus, underwent RONDA/SBO in Apr 2016, currently on weekly chemotherapy carboplatin/ paclitaxel, last chemotherapy and Neupogen Jul 19 who presented to [facility] emergency department for cough and dyspnea of 1 week and fever of one day. 1. Streptococcus pneumoniae pneumonia, present on admission. Active. - Disontinued Rocephin IV 2 g daily and azithromycin 500 mg by mouth - Antibiotic therapy now includes amoxicillin 1 g PO 3 times a day through July 31 - DuoNeb and supplemental oxygen provided as needed - benzonatate for cough suppression, Cepacol lozenges to help decrease cough reflex - CTA negative for PE and consistent with pneumonia, as above. - Influenza screen and respiratory viral PCR negative - Blood culture positive for Streptococcus pneumoniae. - LA normal at 1.6. - Neutropenia, received Neupogen recently. not neutropenic on day of discharge - Infectious disease consulted 2. Streptococcus pneumoniae bacteremia, present on admission. Resolved. - Continue to treat with PO antibiotics as above under problem #1. 3. Acute hypomagnesemia and hypokalemia, present on admission. - Likely secondary to chemotherapy - Magnesium 1.0, potassium 2.8 upon admission. Both within normal range today. - Potassium replated multiple times 4. Sepsis due to acute health care associated pneumonia, present on admission. Resolved. - SIRS criteria met: Respiratory rate 26, heart rate 98, and temperature 38.8 Celsius on admission in an immunocompromised patient receiving Neupogen with CBC that is unreliable. - NS given in ED. Discontinued continuous saline infusion, adequate oral intake. 5. Hypernatremia, not present on admission, Q -Patient has a calculated free water deficit of 2.7 L this is to be replated over 24 hours at a rate of 115 mL/h of D5W -Patient encouraged to have ample PO intake 6. Anemia, present on admission, acute -Hemoglobin and hematocrit 7.3 and 23.1 respectively the day prior to discharge -Per Dr. Arzate of hematology/oncology transfused 1 unit packed RBCs Chronic problems: Hypertension, chronic, controlled - Continue home meds atenolol 50 mg by mouth daily, hctz 50 mg by mouth daily - May give amlodipine 10 mg by mouth if HTN. History of asthma, chronic - DuoNeb every 6 hours as needed for shortness of breath. Hypothyroidism, chronic - Continued levothyroxine 100 mcg daily. History of seizure disorder, chronic. - Continued Lamictal 200 mg daily. Overactive bladder, chronic - Continued oxybutynin 5 mg daily. History of depression, chronic - Continued venlafaxine 300 mg daily. Recent diagnosis of uterine cancer on chemotherapy, chronic - S/P total hysterectomy with salpingo-oophorectomy bilaterally in April 2016 - Current chemotherapy includes weekly carboplatin and paclitaxel- per oncology chemotherapy will be held for 1 week if not 2. - Given Neupogen most recently July 19. - Dr. Arzate of oncology consulted. Insomnia, not present on admission - melatonin given Prophylaxis: - Lovenox and PPI. Discharged home in stable condition Exam Vital Signs (Last) Date Time Temp Pulse Resp B/P Pulse Ox O2 Delivery O2 Flow Rate FiO2 07/27/16 15:02 70 20 96 Room Air 07/27/16 10:11 36.5 127/84 07/26/16 17:18 2.00 Exam General: No acute distress, well-developed, well-nourished, appropriately interactive HEENT: Normocephalic, atraumatic. External ears without defect. Anicteric sclerae, moist conjunctivae, and no lid lag. Oropharynx free of erythema with moist mucosa. Neck: Supple with full range of motion. No jugular venous distension. No lymphadenopathy or thyromegaly. Cardiovascular: Regular rate and rhythm with no murmurs, rubs, or gallops appreciated Pulmonary: mild rhonchi in medial right lower lobe otherwise clear to auscultation with good air movement. Normal respiratory effort with no use of accessory muscles. Abdomen: Bowel tones present. Soft, nontender, nondistended, obese. No hepatosplenomegaly or masses appreciated. Extremities: trace edema bilateral lower extremities, no clubbing, cyanosis, or lymphadenopathy appreciated. Skin: Normal temperature, turgor, and texture; no rash, ulcers, or subcutaneous nodules appreciated. Neurological: Cranial nerves grossly intact. Normal muscle strength, tone, and bulk. No gait impairment. Psychiatric: Normal mood and affect. Alert and oriented to person, place, and time. Test 07/21/16 16:50 07/21/16 18:10 07/21/16 22:15 07/23/16 05:00 Lactic Acid Level 1.6mmol/L (0.4-2.0) Troponin T < 0.010ug/L (0.0-0.011) Urine Legionella pneumophilia Ag Negative (Negative) Phosphorus Level 2.3mg/dL (2.5-4.9) Test 07/24/16 05:00 07/24/16 17:16 07/25/16 05:29 07/27/16 05:00 Metamyelocytes % 5% (0-0) Myelocytes % % (0-0) Promyelocytes % % (0-0) Blast Cells % % (0-0) Nucleated Red Blood Cells /100 WBC (0-24) Hematology Comments Urine Color Yellow (YELLOW) Urine Appearance Clear (CLEAR,HAZY) Urine pH 6.0 (5.0-8.0) Urine Specific [place] 1.010 (1.003-1.035) Urine Protein Negativemg/dL (NEG,TRACE) Urine Glucose (UA) Negativemg/dL (NEGATIVE) Urine Ketones Negativemg/dL (NEGATIVE) Urine Occult Blood Small (NEGATIVE) Urine Nitrite Negative (NEGATIVE) Urine Bilirubin Negative (NEGATIVE) Urine Urobilinogen Normalmg/dL (NORMAL) Urine Leukocyte Esterase Negative (NEGATIVE) Urine RBC 0-2/hpf (0-2) Urine WBC 0-5/hpf (0-5) Urine Epithelial Cells Few/hpf (NONE-MOD) Urine Crystals None seen (NONE SEEN) Urine Bacteria Few/hpf (NONE-FEW) Urine Hyaline Casts None/lpf (NONE) Urine Granular Casts None seen (NONE SEEN) Urine Waxy Casts None seen (NONE SEEN) Urine Red Blood Cell Casts None seen (NONE SEEN) Urine White Blood Cell Casts None seen (NONE SEEN) Urine Mucus None seen (None Seen) Urine Trichomonas None seen (NONE SEEN) Urine Yeast None (NONE SEEN) Urinalysis Comment None Urine Culture Reflexed Not indicated Band Neutrophils % 2% (1-5) Magnesium Level 1.6mg/dL (1.6-2.6) White Blood Count 4.2th/mm3 (3.8-10.1) Red Blood Count 3.19mil/mm3 (3.90-5.20) Hemoglobin 9.2g/dL (12.0-15.6) Hematocrit 29.0% (35.0-46.0) Mean Corpuscular Volume 90.9fL (81-100) Mean Corpuscular Hemoglobin 28.8pg (27.0-35.0) Mean Corpuscular Hemoglobin Concent 31.7% (32.0-37.0) Red Cell Distribution Width 19.8% (12.3-15.4) Platelet Count 230bil/L (150-400) Neutrophils (%) (Auto) 59.4% (40-74) Lymphocytes (%) (Auto) 28.2% (14-46) Monocytes (%) (Auto) 8.8% (4-12) Eosinophils (%) (Auto) 0.7% (0-5) Basophils (%) (Auto) 0.5% (0-3) Sodium Level 145mEq/L (134-144) Potassium Level 4.6mEq/L (3.5-5.2) Chloride Level 103mEq/L (97-108) Carbon Dioxide Level 27mmol/L (18-29) Blood Urea Nitrogen 15mg/dL (8-27) Creatinine 0.70mg/dL (0.57-1.00) Estimat Glomerular Filtration Rate 117mL/min (>59) Glucose Level 99mg/dL (60-99) Calcium Level 9.0mg/dL (8.5-10.1) Total Bilirubin 0.2mg/dL (0.0-1.2) Aspartate Amino Transf (AST/SGOT) 21U/L (0-50) Alanine Aminotransferase (ALT/SGPT) 17U/L (0-32) Alkaline Phosphatase 172U/L (25-165) Total Protein 5.7g/dL (6.4-8.4) Albumin 3.2g/dL (3.4-5.0) Procalcitonin 0.57ng/mL (0.00-0.08) Microbiology Results Influenza screen negative. Blood cultures positive for Streptococcus pneumoniae resistant to Bactrim. Repeat blood cultures showed no growth after 2 days. Urine Streptococcus pneumonia antigen positive. Urine culture grew mixed urogenital lis. C. difficile DNA amplification negative. Respiratory viral PCR negative. . Discharge Medications Discharge Medications Amlodipine (Amlodipine) 10 Mg Tablet 10 MG PO DAILY (Reported) Amoxicillin (Amoxicillin) 500 Mg Tablet 1,000 MG PO TID Prescribed by: JOSE ROY DO Aspirin (Aspirin) 325 Mg Tablet 325 MG PO DAILY (Reported) Atenolol (Atenolol) 50 Mg Tablet 50 MG PO DAILY (Reported) Calcium Carbonate/Vitamin D3 (Calcium + Vitamin D Tablet) 1 Each Tablet 1 EACH PO DAILY (Reported) Cholecalciferol (Vitamin D3) (Vitamin D3) 2,000 Unit Capsule 2,000 UNIT PO DAILY (Reported) Cyanocobalamin (Vitamin B-12) (Vitamin B12) 5,000 Mcg Tab.rapdis 5,000 MCG PO DAILY (Reported) x7days Donepezil (Donepezil) 10 Mg Tablet 10 MG PO HS (Reported) Ferrous Gluconate (Ferrous Gluconate) 324 Mg Tablet 162 MG PO BID (Reported) Furosemide (Furosemide) 40 Mg/4 Ml Solution 40 MG PO DAILY Prescribed by: JOSE ROY DO Gabapentin (Gabapentin) 300 Mg Capsule 300 MG PO BID (Reported) Lamotrigine (Lamictal) 100 Mg Tablet 200 MG PO DAILY (Reported) Levothyroxine (Levothyroxine) 100 Mcg Tablet 100 MCG PO DAILY (Reported) Mv-Mn/FA/Vit K/Lycop/Lut/Coq10 (Daily Multivitamin Capsule) 200-100MCG Capsule 1 EACH PO DAILY (Reported) Omeprazole (Omeprazole) 20 Mg Capsule.dr 40 MG PO DAILY (Reported) Oxybutynin Chloride (Oxybutynin Chloride) 5 Mg Tablet 5 MG PO BID (Reported) Potassium Chloride ER (K-Tab ER) 20 Meq Tablet 20 MEQ PO DAILY Prescribed by: JOSE ROY DO Saccharomyces Boulardii (Florastor) 250 Mg Capsule 250 MG PO BID Prescribed by: JOSE ROY DO Venlafaxine ER (Venlafaxine ER) 150 Mg Cap.er.24h 300 MG PO DAILY (Reported) As needed Acetaminophen (Acetaminophen) 325 Mg Capsule 325 MG PO Q4H PRN PRN For Pain ( Reported) Albuterol Neb Soln (Albuterol Neb Soln) 2.5 Mg/3 Ml Vial.neb 2.5 MG INHALATION Q4H PRN PRN asthma Prescribed by: JOSE ROY DO Benzonatate (Benzonatate) 100 Mg Capsule 200 MG PO TID PRN PRN For Cough Prescribed by: JOSE ROY DO Fluticasone Propionate (Flovent Diskus) 250 Mcg Disk.w.dev 2 PUFF IH BID PRN PRN For Shortness of Breath Prescribed by: JOSE ROY DO Additional med instructions Taking her previously prescribed medications as directed. Hold hydrochlorothiazide for 7 days. Take furosemide 40 mg daily and potassium for those 7 days. Once you have completed this please resume hydrochlorothiazide Continue to take your antibiotic until July 31. You have also been given prescriptions for Tessalon Perles to help with your cough and probiotics. Followup Plan Disposition: Discharged home resuming home health Follow-up plan Follow-up with your oncologist at your already scheduled appointment on August 03. Follow-up with your primary care provider within the next 2 weeks. Discharge Diet: Heart Healthy Discharge Activity: Home Health Phyical Therapy [facility] Patient Instructions Slowly increase her activity over the next few days as you continue to recover. Remember to take deep breaths often. Continue to drink plenty of water over the next few days. Follow-up Provider: Charlene Kelly Follow-up with PCP in: 2 weeks Provider: Heydi Arzate MD Follow-up in: 1 week Time spent 40 minutes Attending Statement The patient was seen and examined together with Dr. Roy on 07/27/2016 and I agree with the history, exam and plan as outlined in the note above. copies to: Charlene Kelly; Heydi Arzate MD, Erika R DO Jul 27, 2016 17:38 Edgardo Collado MD Aug 04, 2016 14:04
--- NOTE | 2016-07-31 14:18 | NUR ---
Social Work: Late Note PROPERTY MANAGEMENT ASSISTANT received a phone call form pt's daughter, Ebonie, who states that [facility] has not contacted them since they have been home since Monday. PROPERTY MANAGEMENT ASSISTANT called [facility], who is not open on Monday, requesting that they call pt and family on Monday morning first thing to set up care with them and to call PROPERTY MANAGEMENT ASSISTANT if they need anything additional from hospital. Pt's phone number is [phone]. RICKY Mayes
== END 2016-07-27 16:35 | disposition home health service (06) | DRG 871 ==
LOC: SED 16:23 → MPC 19:21
PROVIDERS: ADMIT Internal Medicine; ATTEND Internal Medicine
PROC: 30233N1 Transfusion of Nonautologous Red Blood Cells into Peripheral Vein, Percutaneous Approach (ICD-10-PCS; principal; 2016-07-26)
DX: A40.3 Sepsis due to Streptococcus pneumoniae (principal); J13 Pneumonia due to Streptococcus pneumoniae; C55 Malignant neoplasm of uterus, part unspecified; I10 Essential (primary) hypertension; E03.9 Hypothyroidism, unspecified; G40.909 Epilepsy, unspecified, not intractable, without status epilepticus; J45.909 Unspecified asthma, uncomplicated; E83.42 Hypomagnesemia; E87.6 Hypokalemia; N32.81 Overactive bladder; F32.9 Major depressive disorder, single episode, unspecified; G47.00 Insomnia, unspecified; D64.9 Anemia, unspecified